=== PATIENT | female | born 1940 | race Caucasian/White ===

== ENCOUNTER 2017-08-05 06:56 | Inpatient (IN) | payer OTHER ==
[2017-08-05] MEDS ORDERED: IPRATROPIUM BROMIDE 0.5 MG/2.5 ML DEYVIAL IH ONE (07:57)
[2017-08-05] MEDS ORDERED: LEVALBUTEROL 1.25 MG/3 ML DEYVIAL IH ONE (07:57)
[2017-08-05] MEDS ORDERED: methylPREDNISolone SOD SUCC 125 MG/2 ML VIAL IVP ONE (07:57)
--- NOTE | 2017-08-05 08:02 | EDPHY ---
H & P Time Seen by Provider: 08/05/17 07:55 HPI/ROS: CHIEF COMPLAINT: Cough HISTORY OF PRESENT ILLNESS: The patient is a 76-year-old female with a history of bronchial malacia in recurrent respiratory in infections who presents to the emergency department with increasing cough and shortness of breath. Patient states her symptoms started a week ago Tuesday. She is now producing white and yellow sputum. Her cough is moderate to severe. She has mild chest discomfort with coughing. She does not know she has a fever. No chills. No leg pain or swelling. The patient states that over the past year she has had have a bronchoscope 5 times to pull out fluid. She states this is secondary to malfunctioning epiglottis. She also states she is allergic to albuterol and gets carpal spasm with it. REVIEW OF SYSTEMS: My complete review of systems is negative except as mentioned in the HPI. Past Medical/Surgical History: Includes bronchomalacia, chronic bronchitis Past surgical history: Splenectomy, tonsillectomy Social history: The patient does not smoke Smoking Status: Former smoker Physical Exam: 37.2, 183/104, 101, 20, 90% on room air GENERAL: Mild acute distress, alert. Recurrent coughing HEENT: Eyes normal to inspection, normal pharynx, no signs of dehydration. NECK: No thyromegaly, no lymphadenopathy, supple. RESPIRATORY: Coarse breath sounds bilaterally. No wheezing. Mild moderate rales. CVS: Regular rate and rhythm, no rubs, murmurs, or gallops. ABDOMEN: Soft, nontender, nondistended, no organomegaly. BACK: Normal to inspection, no CVA tenderness. SKIN: Normal color, no rash, warm, dry. No pallor. EXTREMITIES: No pedal edema, no calf tenderness, no Homans sign or cords, no joint swelling. NEURO/PSYCH: Alert and oriented x3, normal mood and affect, normal motor sensory exam. Constitutional: Initial Vital Signs Temperature (C) 37.2 C 08/05/17 07:04 Heart Rate 101 H 08/05/17 07:04 Respiratory Rate 20 08/05/17 07:04 Blood Pressure 183/104 H 08/05/17 07:04 O2 Sat (%) 90 L 08/05/17 07:04 O2 Delivery Mode Nasal Cannula O2 (L/minute) 2 Allergies/Adverse Reactions: codeine [Codeine] Allergy (Mild, Verified 08/05/17 11:09) Rash Penicillins Allergy (Mild, Verified 01/16/15 14:05) Rash Sulfa (Sulfonamide Antibiotics) Allergy (Mild, Verified 01/16/15 14:05) Rash albuterol Allergy (Verified 08/05/17 11:09) Other-Enter Comments fluticasone propionate [From Flovent Diskus] Allergy (Verified 08/05/17 11:09) Other-Enter Comments salmeterol xinafoate [From Advair Diskus] Allergy (Verified 08/05/17 11:09) Other-Enter Comments Home Medications: Medication Instructions Recorded Herbals/Supplements -Info Only 1 ea PO DAILY 12/19/15 Cyanocobalamin [Vitamin B12 1,000 mcg IM Q30D 08/05/17 1000MCG/ML (*)] Medical Decision Making - Diagnostics Imaging Results: Imaging Impressions Chest X-Ray 08/05/17 07:57 Impression: Mild perihilar bronchitis, with no new focal infiltrate. ED Course/Re-evaluation: In the emergency department I discussed possible etiologies with the patient. I answered all her questions. Patient states that she has an allergy to albuterol. This causes her to have carpal spasm. I ordered Xopenex discussed this with the patient. It is the same class of medication but perhaps it does not cause this reaction. She was also given Atrovent and Solu-Medrol. A chest x-ray was ordered as well as laboratory studies. She was given Levaquin 750 mg IV after blood cultures were drawn. Patient mild white count. Lactate was 1.8. Chemistry panel is unremarkable. Flu was negative. Chest x-ray: Please refer the dictated report. No focal infiltrate. Noted bronchitis. I discussed the results with the patient. I answered all her questions. I contacted the hospitalist service. They will admit the patient for further evaluation. I feel the patient needs admission due to her significant cough, history of numerous required bronchoscopies, worsening symptoms and need for oxygen. Differential Diagnosis: My differential includes but is not limited to pneumonia, bronchitis, pulmonary embolus, mass, malignancy, bronchomalacia, bacteremia, sepsis - Data Points Laboratory Results: Laboratory Results 08/05/17 07:45 08/05/17 07:45 08/05/17 08/05/17 08/05/17 07:45 07:45 07:45 WBC 13.26 10^3/uL H 10^3/uL (3.80-9.50) RBC 4.22 10^6/uL 10^6/uL (4.18-5.33) Hgb 13.9 g/dL g/dL (12.6-16.3) Hct 38.9 % % (38.0-47.0) MCV 92.2 fL fL (81.5-99.8) MCH 32.9 pg pg (27.9-34.1) MCHC 35.7 g/dL g/dL (32.4-36.7) RDW 14.4 % % (11.5-15.2) Plt Count 302 10^3/uL 10^3/uL (150-400) MPV 9.9 fL fL (8.7-11.7) Neut % (Auto) 50.6 % % (39.3-74.2) Lymph % (Auto) 38.9 % % (15.0-45.0) [place] % (Auto) 9.7 % % (4.5-13.0) Eos % (Auto) 0.2 % L % (0.6-7.6) Baso % (Auto) 0.2 % L % (0.3-1.7) Nucleat RBC Rel Count 0.0 % % (0.0-0.2) Absolute Neuts (auto) 6.72 10^3/uL H 10^3/uL (1.70-6.50) Absolute Lymphs (auto) 5.16 10^3/uL H 10^3/uL (1.00-3.00) Absolute Monos (auto) 1.28 10^3/uL H 10^3/uL (0.30-0.80) Absolute Eos (auto) 0.02 10^3/uL L 10^3/uL (0.03-0.40) Absolute Basos (auto) 0.03 10^3/uL 10^3/uL (0.02-0.10) Absolute Nucleated RBC 0.00 10^3/uL 10^3/uL (0-0.01) Immature Gran % 0.4 % % (0.0-1.1) Immature Gran # 0.05 10^3/uL 10^3/uL (0.00-0.10) VBG Lactic Acid 1.8 mmol/L mmol/L (0.7-2.1) Sodium 134 mEq/L mEq/L (134-144) Potassium 3.6 mEq/L mEq/L (3.5-5.2) Chloride 98 mEq/L mEq/L (97-110) Carbon Dioxide 24 mEq/l mEq/l (22-31) Anion Gap 12 mEq/L mEq/L (8-16) BUN 18 mg/dL mg/dL (7-23) Creatinine 0.6 mg/dL mg/dL (0.6-1.0) Estimated GFR > 60 Glucose 272 mg/dL H mg/dL (70-100) Calcium 9.6 mg/dL mg/dL (8.5-10.4) Troponin I < 0.012 ng/mL ng/mL (0.000-0.034) NT-Pro-B Natriuret Pep 2840 pg/mL H pg/mL (0-450) Influenza A & B (PCR) 08/05/17 07:25 WBC RBC Hgb Hct MCV MCH MCHC RDW Plt Count MPV Neut % (Auto) Lymph % (Auto) [place] % (Auto) Eos % (Auto) Baso % (Auto) Nucleat RBC Rel Count Absolute Neuts (auto) Absolute Lymphs (auto) Absolute Monos (auto) Absolute Eos (auto) Absolute Basos (auto) Absolute Nucleated RBC Immature Gran % Immature Gran # VBG Lactic Acid Sodium Potassium Chloride Carbon Dioxide Anion Gap BUN Creatinine Estimated GFR Glucose Calcium Troponin I NT-Pro-B Natriuret Pep Influenza A & B (PCR) NEGATIVE FOR FLU (NEGATIVE) Microbiology Results: MICROBIOLOGY 08/05/17 07:47 Nasal, Sinus - Swab Respiratory Panel (PCR) - Final Human Rhinovirus/Enterovirus Medications Given: Discontinued Medications Levofloxacin/Dextrose (Levaquin 750 Mg (Premix)) 150 mls @ 100 mls/hr IV EDNOW ONE PRN Reason: Protocol Stop: 08/05/17 09:31 Last Admin: 08/05/17 08:39 Dose: 150 mls Ipratropium [place] (Atrovent Neb) 0.5 mg IH EDNOW ONE Stop: 08/05/17 07:58 Last Admin: 08/05/17 08:18 Dose: 0.5 mg Levalbuterol (Xopenex 1.25mg Neb) 1.25 mg IH EDNOW ONE Stop: 08/05/17 07:58 Last Admin: 08/05/17 08:37 Dose: 1.25 mg Methylprednisolone Sodium Succinate (Solu-Medrol) 125 mg IVP EDNOW ONE Stop: 08/05/17 07:58 Last Admin: 08/05/17 08:20 Dose: 125 mg Departure - Departure Disposition: [facility] In[facility] Acute Clinical Impression: Hypoxia, Bronchitis, Thrush, oral Condition: Good
[2017-08-05 08:06] LABS: % IMMATURE GRANULYOCYTES 0.4 % (0.0-1.1); ABSOLUTE IMMATURE GRANULOCYTES 0.05 10^3/uL (0.00-0.10); ADD DIFF? NO; ADD MORPH? NO; ADD SCAN? NO; ATYPICAL LYMPHOCYTE FLAG 20 (0-99); FRAGMENT RBC FLAG 0 (0-99); HEMATOCRIT 38.9 % (38.0-47.0); HEMOGLOBIN 13.9 g/dL (12.6-16.3); LEFT SHIFT FLG 0 (0-99); LIPEMIA HEMOLYSIS FLAG 90 (0-99); MEAN CELL HEMOGLOBIN 32.9 pg (27.9-34.1); MEAN CELL HEMOGLOBIN CONCENTR. 35.7 g/dL (32.4-36.7); MEAN CELL VOLUME 92.2 fL (81.5-99.8); MEAN PLATELET VOLUME 9.9 fL (8.7-11.7); PLATELET CLUMPS FLAG 0 (0-99); PLATELET COUNT 302 10^3/uL (150-400); RED BLOOD CELL COUNT 4.22 10^6/uL (4.18-5.33); RED CELL DISTRIBUTION WIDTH 14.4 % (11.5-15.2)
[2017-08-05 08:15] LABS: ANION GAP 12 mEq/L (8-16); CALCIUM 9.6 mg/dL (8.5-10.4); CARBON DIOXIDE 24 mEq/l (22-31); CHLORIDE 98 mEq/L (97-110); CREATININE 0.6 mg/dL (0.6-1.0); GLOMERULAR FILTRATION RATE > 60; GLUCOSE 272 mg/dL (70-100); POTASSIUM 3.6 mEq/L (3.5-5.2); SODIUM 134 mEq/L (134-144)
[2017-08-05 08:27] LABS: TROPONIN I < 0.012 ng/mL (0.000-0.034)
[2017-08-05] MEDS: NYSTATIN SUSP 500000 UNIT/5 ML UDCUP PO SCH ×3 (12:41→20:12)
[2017-08-05] MEDS ORDERED: ONDANSETRON DISINTEGRATING 4 MG TAB PO PRN (15:02)
[2017-08-05] MEDS ORDERED: ACETAMINOPHEN 325 MG TAB PO PRN (15:02)
[2017-08-05] MEDS ORDERED: ONDANSETRON 4 MG/2 ML VIAL IVP PRN (15:02)
[2017-08-05] MEDS ORDERED: GUAIFENESIN/DM 10 ML UDCUP PO PRN (15:11)
--- NOTE | 2017-08-05 15:36 | GHP ---
[f rep st] HISTORY AND PHYSICAL DATE OF ADMISSION: 08/05/2017 HISTORY OF PRESENT ILLNESS: The patient is a pleasant 76-year-old female with a history of bronchoma lacia who presents with about 10 days of increasing cough and sputum and shortness of breath. She wa s seen at Urgent Care last week where she was given steroids and a Z-Flo with no improvement. She pr esents to the ER today with ongoing cough and shortness of breath. She is not on oxygen at home. Sh bharat had an oxygen requirement. She arrived to the emergency department 90% on room air. She has not h ad fever, chills, night sweats, but she has had ongoing sputum. It is not clear that she got a flu s hot this year. She does have a history of bronchomalacia requiring intermittent bronchoscopy. She does not have bro nchiectasis. She has no history of heart failure. She does give a history of having had pneumonia, possibly at [facility], and became volume ove rloaded. REVIEW OF SYSTEMS: A complete 10-point review of systems was conducted and negative except as noted in the history of present illness. PAST MEDICAL HISTORY: 1. Bronchomalacia requiring periodic bronchoscopies. 2. Chronic bronchitis, possible COPD. SOCIAL HISTORY: Smoked 40 pack years. Quit remotely. Minimal alcohol. FAMILY HISTORY: Daughter is present at the bedside and healthy. ALLERGIES: Albuterol, sulfa, penicillins, codeine, fluticasone, salmeterol. HOME MEDICATIONS: B12, herbals. PHYSICAL EXAMINATION: VITAL SIGNS: Temperature 37.2, blood pressure 183/104 now 169/92, pulse 101 n ow 65, breathing 20 times a minute, 90% on room air, 93 on 2 L. GENERAL: Uncomfortable, coughing fr equently. HEENT: Sclerae anicteric. Oropharynx clear. Mucous membranes moist. NECK: Supple with out lymphadenopathy. Difficult to assess JVD given frequent coughing. LUNGS: Rhonchorous bilateral ly with good air movement. No wheeze. HEART: S1, S2. ABDOMEN: Soft, nontender, nondistended. LO WER EXTREMITIES: Without edema. Calves nontender. SKIN: Without rash. NEUROLOGIC: Exam is nonfo florencio. White count 13.3, hematocrit 39, platelets 302,000. Venous lactate 1.8, sodium 134, potassium 3.6, c hloride 98, bicarb 24, BUN 18, creatinine 0.6, glucose 272, troponin less than 0.012. BNP is 2040. N otably a year and half ago it was 342. She is influenza negative. She had a respiratory virus panel which shows rhinovirus, enterovirus, Chest x-ray, interpreted by me, shows bronchitis without focal infiltrate. I have discussed the case Dr. Stanley Vasquez. ASSESSMENT AND PLAN: A 76-year-old female with bronchomalacia, presents with bronchitis, cough. 1. Bronchomalacia with bronchitis and cough. I will continue antibiotics. I have written for iprat ropium and Mucomyst nebs. I have talked to Dr. Vasquez about possible bronchoscopy; that will happen e ither today or tomorrow. She is currently n.p.o. 2. Elevated BNP. Will check an echocardiogram. I think volume overload is not her primary complain t. 3. Frequent cough. Will wait for bronchoscopy. She is allergic to codeine. We can write her for s ome Robitussin without codeine. 4. Prophylaxis. Pharmacologic prophylaxis is indicated. 5. Hypertension. This is situational. Will not treat for now. 6. Disposition. Inpatient status given her hypoxemia. /[id number]/MODL
[2017-08-05] MEDS ORDERED: LIDOCAINE 1% 300 MG/30 ML SDV ONE (15:40)
[2017-08-05] MEDS ORDERED: ALBUTEROL 3 ML DEYVIAL ONE (15:40)
[2017-08-05] MEDS ORDERED: SODIUM CL NASAL 45 ML BTL EACHNARE PRN (15:42)
--- NOTE | 2017-08-05 15:44 | PDHPUP ---
History & Physical Update H&P update statement: This history and physical update is based on an assessment of the patient which was completed after admission or registration (within 24 hours), but prior to the surgery/procedure. H&P update: H&P reviewed & patient examined, no change in patient's condition since H&P completed
--- NOTE | 2017-08-05 15:44 | PDPROPOC ---
Sedation Plan of Care Sedation Plan of Care: vital signs stable, mental status noted, patient educated of risks, benefits, alternatives, patient can tolerate sedation ASA Classification: ASA 2 Planned drugs: fentanyl, midazolam Mallampati Score: Class 2 Mallampati Reference Image:
[2017-08-05] MEDS ORDERED: fentaNYL 100 MCG/2 ML INJ ONE (16:25)
[2017-08-05] MEDS ORDERED: MIDAZOLAM 2 MG/2 ML VIAL ONE (16:25)
[2017-08-05] MEDS ORDERED: NS 500 ML IV ONE (16:38)
[2017-08-05] MEDS: ACETYLCYSTEINE 10% 30 ML VIAL IH SCH ×3 (16:47→21:15)
[2017-08-05] MEDS: BUDESONIDE/FORMOTEROL 160/4.5 60 PUFFS/MDI IH SCH ×2 (16:47→21:15)
[2017-08-05] MEDS ORDERED: METOPROLOL TARTRATE 5 MG/5 ML INJ ONE (17:08)
[2017-08-05] MEDS: hydrALAZINE 20 MG/ML VIAL IVP PRN (18:14)
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
[2017-08-05] MEDS: IPRATROPIUM BROMIDE 0.5 MG/2.5 ML DEYVIAL IH PRN (21:15)
--- NOTE | 2017-08-05 22:43 | GPN ---
[f rep st] PROCEDURE NOTE DATE OF PROCEDURE: 08/05/2017 PROCEDURE: Bronchoscopy. INDICATION: Chronic cough with COPD, mucus production, and tracheomalacia. CONSENT: Informed consent was obtained from the patient prior to the administration of anesthesia. The risks and benefits of the procedure and conscious sedation were described in detail. The patient agreed to proceed. ANESTHESIA: Conscious sedation was achieved using a total of 3 mg IV Versed, 75 mcg of IV fentanyl. The patient tolerated these well. DESCRIPTION OF PROCEDURE: After an appropriate time-out, topical lidocaine was applied liberally to the oropharynx and posterior pharynx. The bronchoscope was easily passed through normal-appearing vo florencio cords, though she did have a very brisk cough response. There were thin secretions within the tr achea and down into the tracheobronchial tree on both sides. There were scant, if any, mucus plugs f ound. We did get a reasonable specimen of cloudy, but clear, mucus without hemoptysis. During the p rocedure, the patient's blood pressure daniel to 220/120. This was checked on multiple occasions. The scope was subsequently withdrawn. While the endoscopy staff was obtaining metoprolol, we rechecked the blood pressure with the scope out, and her pressure dropped to 170/90. She was somnolent at this time, but denied any symptoms. We did listen to her lungs at this time. She had some coarse breath sounds on the left side, but no change in oxygenation. Pupils were equally round and reactive to li ght and her neuro exam was nonfocal. /[id number]/MODL
[2017-08-06 05:03] LABS: % IMMATURE GRANULYOCYTES 0.3 % (0.0-1.1); ABSOLUTE IMMATURE GRANULOCYTES 0.03 10^3/uL (0.00-0.10); ADD DIFF? NO; ADD MORPH? NO; ADD SCAN? NO; ATYPICAL LYMPHOCYTE FLAG 20 (0-99); FRAGMENT RBC FLAG 0 (0-99); HEMATOCRIT 36.4 % (38.0-47.0); HEMOGLOBIN 12.9 g/dL (12.6-16.3); LEFT SHIFT FLG 10 (0-99); LIPEMIA HEMOLYSIS FLAG 90 (0-99); MEAN CELL HEMOGLOBIN 33.4 pg (27.9-34.1); MEAN CELL HEMOGLOBIN CONCENTR. 35.4 g/dL (32.4-36.7); MEAN CELL VOLUME 94.3 fL (81.5-99.8); MEAN PLATELET VOLUME 9.8 fL (8.7-11.7); PLATELET CLUMPS FLAG 0 (0-99); PLATELET COUNT 275 10^3/uL (150-400); RED BLOOD CELL COUNT 3.86 10^6/uL (4.18-5.33); RED CELL DISTRIBUTION WIDTH 14.6 % (11.5-15.2)
[2017-08-06 05:23] LABS: ALANINE AMINOTRANSFERASE 37 IU/L (9-52); ALBUMIN 3.3 g/dL (3.5-5.0); ALKALINE PHOSPHATASE 78 IU/L (38-126); ANION GAP 9 mEq/L (8-16); ASPARTATE AMINOTRANSFERASE 15 IU/L (14-46); BILIRUBIN,TOTAL 0.6 mg/dL (0.1-1.4); CALCIUM 9.4 mg/dL (8.5-10.4); CARBON DIOXIDE 24 mEq/l (22-31); CHLORIDE 101 mEq/L (97-110); CREATININE 0.8 mg/dL (0.6-1.0); GLOMERULAR FILTRATION RATE > 60; GLUCOSE 308 mg/dL (70-100); POTASSIUM 4.5 mEq/L (3.5-5.2); SODIUM 134 mEq/L (134-144); TOTAL PROTEIN 6.2 g/dL (6.3-8.2)
[2017-08-06] MEDS: NYSTATIN SUSP 500000 UNIT/5 ML UDCUP PO SCH ×3 (05:36→16:09)
[2017-08-06] MEDS: ACETYLCYSTEINE 10% 30 ML VIAL IH SCH ×3 (06:00→16:46)
[2017-08-06] MEDS: IPRATROPIUM BROMIDE 0.5 MG/2.5 ML DEYVIAL IH PRN ×3 (06:00→16:46)
[2017-08-06] MEDS: CEPACOL LOZENGE PO PRN ×2 (06:34→16:09)
[2017-08-06] MEDS ORDERED: ENOXAPARIN 40 MG/0.4 ML SYR SC SCH (09:00)
[2017-08-06] MEDS: BUDESONIDE/FORMOTEROL 160/4.5 60 PUFFS/MDI IH SCH (10:34)
--- NOTE | 2017-08-06 11:17 | PDINTPN ---
Professor Of Physical Education Progress Note Assessment/Plan: Assessment/plan: 76 F with COPD and chronic cough off meds for several months developed ST, F/ chills, and cough. Requested bronch as was done in the past and found to have significant mucous plugs. CXR was unremarkable, but viral cultures show Rhinovirus. * COPD/RAD with FEV1= 80-85% both at [facility] and [facility]. Much better today, likely as a result of symbicort and not likely from bronch which showed very little and only thin secretions. Keep symbicort after dc home and she can followup with me in 4-6 weeks for complete PFTs. * Rhinovirus sinusitis- stable. Continue nasal rinses and flonase * HTN- per hospitalist team- echo done with pending results. Subjective: Feels much better today after starting symbicort Objective: Vital Signs Temp Pulse Resp BP Pulse Ox 36.7 C 70 14 158/87 H 95 08/06/17 08:00 08/06/17 10:39 08/06/17 10:39 08/06/17 08:00 08/06/17 10:39 Microbiology 08/05/17 17:10 Gram Stain - Final Lung Left Lower Lobe - Bronchial Washings Laboratory Results 08/06/17 04:45 08/06/17 04:45 08/05/17 08/06/17 08/07/17 05:59 05:59 05:59 Intake Total 450 Output Total 1450 200 Balance -1000 -200 Physical Exam - Physical Exam General Appearance: WD/WN, alert, no apparent distress EENT: PERRL/EOMI Neck: supple Respiratory: lungs clear, normal breath sounds, No respiratory distress, No accessory muscle use, No rales, No rhonchi, No wheezing Cardiac/Chest: regular rate, rhythm, No edema Abdomen: non-tender, soft, No distended Skin: normal color, warm/dry Lymphatic: no adenopathy Extremities: No pedal edema Neuro/Psych: alert, normal mood/affect, oriented x 3 ICD10 Worksheet Patient Problems: Problems Problem Status Onset Bronchitis Acute Hypoxia Acute Thrush, oral Acute Acute exacerbation of chronic bronchitis Acute Respiratory distress Acute
--- NOTE | 2017-08-06 11:21 | ECHO ---
[email or web address] [address] [address] Main: [phone] Fax: Transthoracic Echocardiogram Name: ALEXANDR GLOVER MR#: [id number] Study Date: 08/06/2017 Study Time: 09:35 AM Date of : 1940 Age: 76 year(s) Height: 160 cm (63 in.) Weight: 58.97 kg (130 lb.) BSA: 1.61 m2 Gender: Female Examination: Echo Indication: Elevated BNP 158 Image Quality: Contrast: Requested by: Norberto Lua BP: 158 mmHg/87 mmHg Heart Rate: Rhythm: Indication: Elevated BNP Procedure Staff Retail Coverage Merchandiser: Cookie Arellano Reading Physician: Everardo Mohr Requesting Provider: Conclusions: 1)Normal LV size and systolic function with a LVEF of 63% and normal wall motions. 2)Mild concentric LVH with mild diastolic dsyfunction. 3)Mild-moderate left atrial enlargement noted. 4)Aortic valve sclerosis present with no or AI noted. 5)Trivial MR without MV prolapse. 6)Mild TR noted. Unable to accurately assess PA pressures. Measurements: Chambers Valvular Assessment AV/MV Valvular Assessment TV/PV Normal Normal Normal Name Value Range Name Value Range Name Value Range Ao Lynda (MM): 2.7 cm (2.2 cm-3.7 AV Vmax: 1.43 m/s (1 m/s-1.7 TR Vmax: 2.13 mm/s ( - ) cm) m/s) TR PGmax: 18 mmHg ( - ) IVSd (2D): 0.9 cm (0.6 cm-1.1 AV maxP mmHg ( - ) syst. PAP: 23 mmHg ( - ) cm) MV E Vmax: 0.76 m/s ( - ) LVDd (2D): 4.0 cm (3.9 cm-5.3 MV A Vmax: 0.99 m/s ( - ) cm) MV E/A: 0.77 ( - ) LVDs (2D): 2.4 cm (2.1 cm-4 cm) LVPWd (2D): 0.8 cm ( - ) LVEF (MOD4): 63 % (>=55 %) Continued Measurements: Chambers Valvular Assessment AV/MV Valvular Assessment TV/PV Name Value Name Value Name Value LADs: 3.6 cm MV E/E' Septal: 16.30 CVP (est.): 5 mmHg LADs Lon.7 cm MV E/E' Lateral: 15.70 LA Area: 20.7 cm2 Patient: ALEXANDR GLOVER Study Date: 08/06/2017 Page 1 of 2 09:35 AM LA Volume: 58 ml LA Volume Index: 36.0 ml/m2 Findings: Left Ventricle: Normal size left ventricle. Mild concentric LV hypertrophy. Normal global systolic LV function. EF is 63 %. Mild diastolic dysfunction noted. Right Ventricle: Normal size right ventricle. Left Atrium: The left atrium is mildly to moderately dilated. Right Atrium: The right atrium is normal in size. Mitral Valve: Trivial mitral valve regurgitation. Moderate MAC noted. Aortic Valve: The aortic valve is tri-leaflet. There is mild calcification of the NCC of the aortic valve. Tricuspid Valve: The tricuspid valve appears normal. Trivial tricuspid valve regurgitation. Pulmonic Valve: The pulmonic valve is normal in appearance. Mild pulmonic valve regurgitation is noted. Pericardium: No pericardial effusion. (No Signature Object) Patient: ALEXANDR GLOVER Study Date: 08/06/2017 Page 2 of 2 09:35 AM [id number]
--- NOTE | 2017-08-06 11:44 | ASMTCMCOM ---
CM Note CM Note Notes: Pt. is a 76-year-old woman admitted w/ bronchitis. Hx. of chronic lung problems. Has been a patient at [facility]. Hx. multiple bronchoscopies. Bronched at [facility] 08/05. Hx. PNA, former smoker. Pt. reportedly lives alone, but daughter is very nearby and son involved as well. Anticipate independent d/c when ready. CM available should d/c POC change. Date Signed: 08/06/2017 11:43 AM Electronically Signed By:Ely Saunders LCSW
[2017-08-06] MEDS: hydrALAZINE 20 MG/ML VIAL IVP PRN (11:57)
--- NOTE | 2017-08-06 13:04 | HOSPPROG ---
Hospitalist Progress Note Assessment/Plan: 76 yo f w broncho malacia here w cough, htn cough: much improved post bronch thin secretions- will not dc on abx htn: w YUAN check head CT states normally has normal BP echo unremarkable elevated bnp- likely 2/2 htn dispo: home if neg non con CT Subjective: case d/w dr elliott. tele no events, interp by me Objective: Vital Signs Temp Pulse Resp BP Pulse Ox 37.2 C 65 16 176/88 H 96 08/06/17 11:41 08/06/17 11:41 08/06/17 11:41 08/06/17 11:57 08/06/17 11:41 Microbiology 08/05/17 17:10 Gram Stain - Final Lung Left Lower Lobe - Bronchial Washings Laboratory Results 08/06/17 04:45 08/06/17 04:45 08/05/17 08/06/17 08/07/17 05:59 05:59 05:59 Intake Total 450 Output Total 1450 200 Balance -1000 -200 - Physical Exam Constitutional: no apparent distress, appears nourished Eyes: PERRL, anicteric sclera Ears, Nose, Mouth, Throat: moist mucous membranes, hearing normal Cardiovascular: regular rate and rhythym, no murmur, rub, or gallop Respiratory: no respiratory distress, other (much improved) Gastrointestinal: normoactive bowel sounds, soft, non-tender abdomen Genitourinary: no bladder fullness Skin: warm, normal color Musculoskeletal: full muscle strength, no muscle tenderness ICD10 Worksheet Patient Problems: Problems Problem Status Onset Bronchitis Acute Hypoxia Acute Thrush, oral Acute Acute exacerbation of chronic bronchitis Acute Respiratory distress Acute
[2017-08-06 15:50] VITALS: BP 138/71; TEMP 97.9
--- NOTE | 2017-08-06 16:35 | ASMTCMCOM ---
CM Note CM Note Notes: Pt. to d/c independently this evening. Date Signed: 08/06/2017 04:34 PM Electronically Signed By:Ely Saunders LCSW
[2017-08-06 17:06] VITALS: PULSE 70; RESP 14; O2SAT 96
--- NOTE | 2017-08-06 18:16 | GDS ---
[f rep st] DISCHARGE SUMMARY DISCHARGE DIAGNOSES: 1. Bronchomalacia with viral upper respiratory infection. 2. Hypertension. 3. Reactive airway disease. HOSPITAL COURSE: Please see admission history and physical by Dr. Norberto Lua. The patient prese nted with dyspnea and unrelenting cough. She was unresponsive to steroids and Z-Flo. She underwent bronchoscopy, revealed thin secretions. The procedure was aborted largely to marked hypertension of 220/120 that resolved down to 170. She does not carry a diagnosis of hypertension. She had elevated BNP. Echocardiogram was relatively normal, showing diastolic dysfunction. She did not have clinica l heart failure. She complained of a headache, so a noncontrast head CT was pursued, and found to stone ve no evidence of subdural hematoma or other acute events. The patient is discharged home. She is a greeable to taking Symbicort. Her air sealing technician is Dr. Darren Sandoval, who has just retired, so she wi ll follow up with Dr. Stanley Vasquez. /[id number]/MODL
--- NOTE | 2017-08-07 14:59 | ASDISCHSUM ---
Discharge Information Plan Status:Home with No Needs Medically Cleared to Leave: Discharge Date:08/06/2017 05:51 PM CM D/C Disposition:Home, Routine, Self-Care ADT D/C Disposition:Home, Routine, Self-Care Projected Discharge Date:08/06/2017 05:51 PM Transportation at D/C: Discharge Delay Reason: Follow-Up Date:08/06/2017 05:51 PM Discharge Slot: Final Diagnosis: Placement Information Patient Contact Information Contact Name:RADHA Relationship:Daughter Address:[address] City:[place] Alternate Phone: [facility]/Zip Code:[place] [address] Email: Financial Information Financial Class: Primary Plan Desc:MEDICARE OUTPATIENT Primary Plan Number:[id number] Secondary Plan Desc:[facility] Secondary Plan Number:[id number] Assessment Information [facility] CM Progress Note CM Note CM Note Notes: Pt. is a 76-year-old woman admitted w/ bronchitis. Hx. of chronic lung problems. Has been a patient at [facility]. Hx. multiple bronchoscopies. Bronched at [facility] 08/05. Hx. PNA, former smoker. Pt. reportedly lives alone, but daughter is very nearby and son involved as well. Anticipate independent d/c when ready. CM available should d/c POC change. Date Signed: 08/06/2017 11:43 AM Electronically Signed By:Ely Saunders LCSW [facility] CM Progress Note CM Note CM Note Notes: Pt. to d/c independently this evening. Date Signed: 08/06/2017 04:34 PM Electronically Signed By:Ely Saunders LCSW Intervention Information Intervention Type:*Incorrect Registration Date of Service:08/05/2017 05:13 PM Patient Type:Inpatient Staff Member:JESSA Carmona, Bronwyn Hours: Discipline: Severity: Comment:
== END 2017-08-06 17:51 | disposition home or self-care (01) | DRG 192 ==
LOC: OBSVTOIN 10:18 → F3E 11:34
PROVIDERS: ADMIT Internal Medicine; ATTEND Internal Medicine
DX: J44.0 Chronic obstructive pulmonary disease with (acute) lower respiratory infection (principal); J98.09 Other diseases of bronchus, not elsewhere classified; I10 Essential (primary) hypertension; K21.9 Gastro-esophageal reflux disease without esophagitis; J32.9 Chronic sinusitis, unspecified; Z87.891 Personal history of nicotine dependence
CPT/HCPCS: 96365; J0171; J0360; J1650; J1956; J2250; J3010

== ENCOUNTER 2017-09-23 22:02 | Inpatient (IN) | payer OTHER ==
--- NOTE | 2017-09-23 22:22 | EDPHY ---
H & P Stated Complaint: seen by pcp today with blood work elevated glucose low na+ HPI/ROS: HPI CHIEF COMPLAINT: Unsteadiness, dizziness, lightheadedness, high blood sugar low sodium. HISTORY OF PRESENT ILLNESS: Patient very pleasant 77-year-old female, she presents emergency room after she was seen at her primary care doctor's office today and had blood work and found to have a very high blood sugar and a low sodium. Concerning for diabetes. She was referred to the emergency room. It is reported that her blood sugar was over 700. Unclear what her sodium was. She does admit to dry mouth, increased thirst and urinary frequency. Her main complaint is feeling lightheadedness. Dizziness. Past Medical History: Bronchomalacia, COPD, recent upper respiratory tract infection, reactive airway disease, hypertension Past Surgical History: Multiple surgeries including appendectomy Social History: Denies daily use of drugs alcohol tobacco products. Family History: Noncontributory ROS REVIEW OF SYSTEMS: A comprehensive 10 point review of systems is otherwise negative aside from elements mentioned in the history of present illness. Exam Constitutional appears nontoxic, triage nursing summary reviewed, vital signs reviewed, awake/alert. Eyes normal conjunctivae and sclera, EOMI, PERRLA. HENT dry mucous membranes, dry skin, normal inspection, atraumatic, moist mucus membranes, no epistaxis, neck supple/ no meningismus, no raccoon eyes. Respiratory clear to auscultation bilaterally, normal breath sounds, no respiratory distress, no wheezing. Cardiovascular rate normal, regular rhythm, no murmur, no edema, distal pulses normal. Gastrointestinal soft, non-tender, no rebound, no guarding, normal bowel sounds, no distension, no pulsatile mass. Genitourinary no CVA tenderness. Musculoskeletal no midline vertebral tenderness, full range of motion, no calf swelling, no tenderness of extremities, no meningismus, good pulses, neurovascularly intact. Skin dry skin, pink, warm, & dry, no rash, skin atraumatic. Neurologic awake, alert and oriented x 3, AAOx3, moves all 4 extremities equally, motor intact, sensory intact, CN II-XII intact, normal cerebellar, normal vision, normal speech. Psychiatric normal mood/affect. Heme/Lymph/Immune no lymphadenopathy. Differential Diagnosis: Includes but is not limited to in a particular order: DKA, severe hyperglycemia, honk, infection, hyponatremia, electrolyte disturbance Medical Decision Making: Plan for this patient IV establishment with blood draw check sodium, check blood glucose, hold off on IV fluids at this time until I understand her electrolyte imbalance. Rule out DKA. Re-evaluation: 1216: The patient had a repeat fingerstick glucose it is down to 350 after 10 units subcu insulin and 1 L normal saline. She has not required insulin drip. She does not have an anion gap. Her bicarb is normal. I do not feel that she needs an insulin drip. Will continue to hydrate her overnight. As she does not need insulin drip she does not need to go to the ICU she is not in DKA. Final diagnosis hyperglycemia, hyponatremia, dehydration. Spoke with the hospitalist service Dr. Curtis who agrees to admit. Source: Patient - Personal History Current Tetanus/Diphtheria Vaccine: Yes Current Tetanus Diphtheria and Acellular Pertussis (TDAP): Yes - Medical/Surgical History Hx Asthma: No Hx Chronic Respiratory Disease: Yes Hx Diabetes: Yes Hx Cardiac Disease: No Hx Renal Disease: No Hx Cirrhosis: No Hx Alcoholism: No Hx HIV/AIDS: No Hx Splenectomy or Spleen Trauma: Yes Other PMH: PMH: Chronic bronchitis. PSH: spleenectomy, tonsillectomy. bronchial malasia, "too much mucous". last bronchoscopy dec 2015 - Social History Smoking Status: Former smoker Constitutional: Initial Vital Signs Temperature (C) 36.9 C 09/23/17 22:11 Heart Rate 59 L 09/23/17 22:11 Respiratory Rate 18 09/23/17 22:11 Blood Pressure 177/90 H 09/23/17 22:11 O2 Sat (%) 93 09/23/17 22:11 O2 Delivery Mode Room Air Allergies/Adverse Reactions: codeine [Codeine] Allergy (Mild, Verified 08/05/17 11:09) Rash Penicillins Allergy (Mild, Verified 01/16/15 14:05) Rash Sulfa (Sulfonamide Antibiotics) Allergy (Mild, Verified 01/16/15 14:05) Rash albuterol Allergy (Verified 08/05/17 11:09) Other-Enter Comments fluticasone propionate [From Flovent Diskus] Allergy (Verified 08/05/17 11:09) Other-Enter Comments hydrocodone Allergy (Verified 09/23/17 22:09) salmeterol xinafoate [From Advair Diskus] Allergy (Verified 08/05/17 11:09) Other-Enter Comments Home Medications: Medication Instructions Recorded Herbals/Supplements -Info Only 1 ea PO DAILY 12/19/15 Cyanocobalamin [Vitamin B12 1,000 mcg IM Q30D 08/05/17 1000MCG/ML (*)] Budesonide/Formoterol 160/4.5 2 puffs IH BID mdi 08/06/17 [Symbicort 160-4.5 Mcg Inh (*)] Fluconazole [Diflucan (*)] 150 mg PO DAILY 09/23/17 Lisinopril [Zestril 10 mg (*)] 10 mg PO DAILY 09/24/17 Magnesium Oxide [Magnesium Oxide 500 mg PO BID PRN 09/24/17 500 mg] metFORMIN HCL [Metformin HCl ER] 500 mg PO DAILY 09/24/17 Medical Decision Making - Data Points Laboratory Results: Laboratory Results 09/23/17 22:36 09/23/17 22:36 Medications Given: Acetaminophen (Tylenol) 650 mg PO Q4HRS PRN PRN Reason: Pain, Mild/Fever, Can Take PO Stop: 03/23/18 00:16 Last Admin: 09/24/17 20:12 Dose: 650 mg Enoxaparin Sodium (Lovenox) 40 mg SC DAILY [facility] Stop: 03/23/18 08:59 Last Admin: 09/24/17 08:04 Dose: Not Given Fluconazole (Diflucan) 150 mg PO DAILY [facility] Stop: 09/29/17 09:01 Last Admin: 09/24/17 09:46 Dose: 150 mg Insulin Human Lispro (Humalog Lispro) 0 unit SC TIDMEAL STEPHEN PRN Reason: Protocol Stop: 03/23/18 07:59 Last Admin: 09/24/17 17:32 Dose: 12 unit Lisinopril (Zestril) 10 mg PO DAILY [facility] Stop: 03/23/18 09:29 Last Admin: 09/24/17 09:42 Dose: 10 mg Magnesium Oxide (Magnesium Oxide) 400 mg PO BID PRN PRN Reason: CRAMPS Stop: 03/23/18 10:12 Last Admin: 09/24/17 12:49 Dose: 400 mg Metformin HCl (Glucophage Xr) 500 mg PO DAILY@1700 [facility] Stop: 03/23/18 16:59 Last Admin: 09/24/17 17:49 Dose: 500 mg Miscellaneous Medication (Budesonide/Formoterol 160/4.5 [Symbicort 160-4.5 Mcg Inh (*)]) 2 puffs IH BID STEPHEN Stop: 03/23/18 09:29 Last Admin: 09/24/17 20:14 Dose: 2 puffs Nystatin (Mycostatin Oral Liquid) 500,000 unit PO QID STEPHEN PRN Reason: Protocol Stop: 10/24/17 11:59 Last Admin: 09/24/17 20:14 Dose: 500,000 unit Discontinued Medications Sodium Chloride (Ns) 1,000 mls @ 0 mls/hr IV ONCE ONE PRN Reason: Wide Open Stop: 09/23/17 23:11 Last Admin: 09/23/17 23:22 Dose: 1,000 mls Sodium Chloride (Ns) 1,000 mls @ 125 mls/hr IV CONT STEPHEN Stop: 03/23/18 00:29 Last Admin: 09/24/17 09:33 Dose: 1,000 mls Influenza Virus Vaccine Quadrival (Fluarix Quad [id number]) 0.5 ml IM .ONCE ONE Stop: 09/24/17 15:31 Last Admin: 09/24/17 15:27 Dose: 0.5 ml Insulin Glargine (Lantus Syringe) 10 units SC HS [facility] Stop: 03/23/18 00:29 Last Admin: 09/24/17 01:45 Dose: Not Given Insulin Human Regular (Humulin R) 10 unit SC EDNOW ONE Stop: 09/23/17 23:12 Last Admin: 09/23/17 23:23 Dose: 10 units Insulin Human Regular (Humulin R) 10 unit IVP ONCE ONE Stop: 09/24/17 00:39 Last Admin: 09/24/17 00:43 Dose: 10 units Departure - Departure Disposition: [facility] Acute Clinical Impression: Hyperglycemia, Dehydration Condition: Fair
[2017-09-23 22:36] LABS: COLOR YELLOW; LEUKOCYTE ESTERASE,URINE NEGATIVE (NEGATIVE); NITRITE,URINE NEGATIVE (NEGATIVE)
[2017-09-23 22:43] LABS: % IMMATURE GRANULYOCYTES 0.1 % (0.0-1.1); ABSOLUTE IMMATURE GRANULOCYTES 0.01 10^3/uL (0.00-0.10); ADD DIFF? NO; ADD MORPH? NO; ADD SCAN? NO; ATYPICAL LYMPHOCYTE FLAG 30 (0-99); FRAGMENT RBC FLAG 0 (0-99); HEMATOCRIT 40.1 % (38.0-47.0); HEMOGLOBIN 14.7 g/dL (12.6-16.3); LEFT SHIFT FLG 0 (0-99); LIPEMIA HEMOLYSIS FLAG 90 (0-99); MEAN CELL HEMOGLOBIN 33.6 pg (27.9-34.1); MEAN CELL HEMOGLOBIN CONCENTR. 36.7 g/dL (32.4-36.7); MEAN CELL VOLUME 91.8 fL (81.5-99.8); MEAN PLATELET VOLUME 10.2 fL (8.7-11.7); PLATELET CLUMPS FLAG 10 (0-99); PLATELET COUNT 215 10^3/uL (150-400); RED BLOOD CELL COUNT 4.37 10^6/uL (4.18-5.33)
[2017-09-23 22:52] LABS: APTT 23.1 SEC (23.0-38.0); INR 0.93 (0.83-1.16); PROTIME(PATIENT) 12.4 SEC (12.0-15.0)
[2017-09-23 22:54] LABS: ALANINE AMINOTRANSFERASE 32 IU/L (9-52); ALBUMIN 4.3 g/dL (3.5-5.0); ALKALINE PHOSPHATASE 220 IU/L (38-126); ANION GAP 12 mEq/L (8-16); ASPARTATE AMINOTRANSFERASE 29 IU/L (14-46); BILIRUBIN,TOTAL 0.3 mg/dL (0.1-1.4); BILIRUBIN-CONJUGATED 0.3 mg/dL (0.0-0.5); CALCIUM 9.7 mg/dL (8.5-10.4); CARBON DIOXIDE 24 mEq/l (22-31); CHLORIDE 91 mEq/L (97-110); CREATININE 0.7 mg/dL (0.6-1.0); GLOMERULAR FILTRATION RATE > 60; POTASSIUM 4.6 mEq/L (3.5-5.2); SODIUM 127 mEq/L (134-144); TOTAL PROTEIN 6.6 g/dL (6.3-8.2)
[2017-09-23 23:01] LABS: BASE EXCESS -3.1 mEq/L (-2.5-2.5); BICARBONATE 19 mEq/L (22-26); PCO2 26 mmHg (34-38); PO2 100 mmHg (65-75); TCO2 19 mEq/L (23-27)
[2017-09-23 23:02] LABS: GLUCOSE 516 mg/dL (70-100)
[2017-09-23 23:02] LABS: MEASURED OXYGEN SATURATION 98 % (92-95)
[2017-09-23] MEDS ORDERED: NS 1,000 ML IV ONE (23:10)
[2017-09-23] MEDS ORDERED: INSULIN REGULAR HUMAN 100 UNIT/ML SC ONE (23:11)
[2017-09-23 23:15] LABS: RBC,URINE NONE SEEN /hpf (0-3)
[2017-09-24] MEDS ORDERED: ONDANSETRON 4 MG/2 ML VIAL IVP PRN (00:17)
[2017-09-24] MEDS ORDERED: D50W 25 GM/50 ML SYR IVP PRN (00:19)
[2017-09-24] MEDS ORDERED: INSULIN GLARGINE 100 UNITS/ML SYRINGE SC SCH (00:30)
[2017-09-24] MEDS ORDERED: INSULIN REGULAR HUMAN 100 UNIT/ML IVP ONE (00:38)
[2017-09-24 00:41] LABS: ANION GAP 13 mEq/L (8-16); CALCIUM 8.7 mg/dL (8.5-10.4); CARBON DIOXIDE 22 mEq/l (22-31); CHLORIDE 99 mEq/L (97-110); CREATININE 0.6 mg/dL (0.6-1.0); GLOMERULAR FILTRATION RATE > 60; GLUCOSE 382 mg/dL (70-100); POTASSIUM 4.2 mEq/L (3.5-5.2); SODIUM 134 mEq/L (134-144)
[2017-09-24] MEDS ORDERED: INSULIN REGULAR HUMAN 100 UNIT/ML ONE ×2 (00:41)
[2017-09-24] MEDS: NS 1,000 ML IV SCH ×2 (01:29→09:33)
[2017-09-24 05:36] LABS: % IMMATURE GRANULYOCYTES 0.1 % (0.0-1.1); ABSOLUTE IMMATURE GRANULOCYTES 0.01 10^3/uL (0.00-0.10); ADD DIFF? NO; ADD MORPH? NO; ADD SCAN? NO; ATYPICAL LYMPHOCYTE FLAG 30 (0-99); FRAGMENT RBC FLAG 0 (0-99); HEMATOCRIT 35.8 % (38.0-47.0); HEMOGLOBIN 12.5 g/dL (12.6-16.3); LEFT SHIFT FLG 0 (0-99); LIPEMIA HEMOLYSIS FLAG 90 (0-99); MEAN CELL HEMOGLOBIN 32.1 pg (27.9-34.1); MEAN CELL HEMOGLOBIN CONCENTR. 34.9 g/dL (32.4-36.7); MEAN PLATELET VOLUME 10.4 fL (8.7-11.7); PLATELET CLUMPS FLAG 0 (0-99); PLATELET COUNT 206 10^3/uL (150-400); RED BLOOD CELL COUNT 3.89 10^6/uL (4.18-5.33); RED CELL DISTRIBUTION WIDTH 12.9 % (11.5-15.2)
[2017-09-24 06:01] LABS: ANION GAP 8 mEq/L (8-16); CARBON DIOXIDE 25 mEq/l (22-31); CHLORIDE 104 mEq/L (97-110); CREATININE 0.6 mg/dL (0.6-1.0); GLOMERULAR FILTRATION RATE > 60; GLUCOSE 108 mg/dL (70-100); MAGNESIUM 2.1 mg/dL (1.6-2.3); POTASSIUM 3.4 mEq/L (3.5-5.2); SODIUM 137 mEq/L (134-144)
[2017-09-24] MEDS: INSULIN LISPRO 100 UNIT/ML SC SCH ×3 (07:54→17:32)
[2017-09-24] MEDS: ENOXAPARIN 40 MG/0.4 ML SYR SC SCH (08:04)
[2017-09-24] MEDS ORDERED: NON-FORMULARY NEW DRUG (Magnesium Oxide [Magnesium Oxide 500 Mg] 500 MG) PO PRN (09:05)
[2017-09-24] MEDS: ACETAMINOPHEN 325 MG TAB PO PRN ×2 (09:42→20:12)
[2017-09-24] MEDS: LISINOPRIL 10 MG TAB PO SCH (09:42)
[2017-09-24] MEDS: [UNRECOGNIZED DRUG - OTHER] IH SCH ×2 (09:46→20:14)
[2017-09-24] MEDS: BUDESONIDE IH SCH ×2 (09:46→20:14)
[2017-09-24] MEDS: FORMOTEROL IH SCH ×2 (09:46→20:14)
[2017-09-24] MEDS: FLUCONAZOLE 150 MG TAB PO SCH (09:46)
[2017-09-24] MEDS ORDERED: FLU VACC QS 2017-18 (3YR+)/PF 0.5 ML SYR (FLUARIX QUAD) IM ONE ×2 (09:54→15:30)
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
--- NOTE | 2017-09-24 11:14 | ASMTCMCOM ---
CM Note CM Note Notes: Pt has recent dx of diabetes and was admitted for hyperglycemia. Pt lives alone and will benefit from HC RN at NH. Met with pt who agreed with HC RN. Referral faxed to [facility]. Date Signed: 09/24/2017 11:13 AM Electronically Signed By:Dalia Tam LCSW
[2017-09-24 12:37] LABS: GLUCOSE 332 mg/dL (70-100)
[2017-09-24] MEDS: NYSTATIN SUSP 500000 UNIT/5 ML UDCUP PO SCH ×3 (12:49→20:14)
[2017-09-24] MEDS: MAGNESIUM OXIDE 400 MG TAB PO PRN (12:49)
--- NOTE | 2017-09-24 15:07 | HOSPPROG ---
Hospitalist Progress Note Assessment/Plan: Patient is a 77-year-old female with a past medical history with hypertension and COPD. She was evaluated by her primary care provider and was prescribed metformin for new diagnosed diabetes. She was sent to the hospital for further evaluation. Today is my 1st encounter with the patient * diabetes type 2, newly diagnosed -glucoses remain still quite elevated -started on ADA diet -will ask the nursing staff to teacher on how to check her glucoses -she had recently been on steroids * benign hypertension -on lisinopril * thrush -on Diflucan * COPD -on Symbicort *Chronic headache -no complaints * hyponatremia -recheck in a.m. *Plan: patient says she feels off and has felt this way for weeks/?due to high blood sugars/ has no focal deficits. Will monitor overnight, ask nursing staff to teach her how to monitor glucoses, data solutions architect to see. Subjective: Cookie has no complaints but describes feeling off for a period of time Objective: Vital Signs Temp Pulse Resp BP Pulse Ox 36.8 C 60 12 128/65 H 95 09/24/17 11:46 09/24/17 11:46 09/24/17 11:46 09/24/17 11:46 09/24/17 11:46 Laboratory Results 09/24/17 05:18 09/24/17 12:10 09/23/17 09/24/17 09/25/17 05:59 05:59 05:59 Intake Total 1500 Output Total 800 Balance 1500 -800 PT 12.4 SEC (12.0-15.0) 09/23/17 22:36 INR 0.93 (0.83-1.16) 09/23/17 22:36 - Physical Exam Constitutional: not in pain, chronically ill appearing Eyes: PERRL Ears, Nose, Mouth, Throat: hearing normal Cardiovascular: regular rate and rhythym Respiratory: no respiratory distress Genitourinary: no bladder fullness Skin: warm Musculoskeletal: generalized weakness Neurologic: AAOx3 Psychiatric: interacting appropriately, not encephalopathic, thought process linear ICD10 Worksheet Patient Problems: Problems Problem Status Onset Dehydration Acute Hyperglycemia Acute Acute exacerbation of chronic bronchitis Acute Bronchitis Acute Hypoxia Acute Respiratory distress Acute Thrush, oral Acute
[2017-09-24] MEDS ORDERED: metFORMIN SR 500 MG TAB PO SCH (17:00)
[2017-09-25] MEDS: NYSTATIN SUSP 500000 UNIT/5 ML UDCUP PO SCH ×4 (05:03→21:07)
[2017-09-25] MEDS: ACETAMINOPHEN 325 MG TAB PO PRN ×2 (05:03→21:08)
[2017-09-25] MEDS: INSULIN LISPRO 100 UNIT/ML SC SCH ×4 (07:39→21:12)
[2017-09-25] MEDS: LISINOPRIL 10 MG TAB PO SCH (08:36)
[2017-09-25] MEDS: FLUCONAZOLE 150 MG TAB PO SCH (08:36)
[2017-09-25] MEDS: BUDESONIDE IH SCH ×2 (08:37→21:50)
[2017-09-25] MEDS: ENOXAPARIN 40 MG/0.4 ML SYR SC SCH (08:37)
[2017-09-25] MEDS: [UNRECOGNIZED DRUG - OTHER] IH SCH ×2 (08:37→21:50)
[2017-09-25] MEDS: FORMOTEROL IH SCH ×2 (08:37→21:50)
[2017-09-25] MEDS: MAGNESIUM OXIDE 400 MG TAB PO PRN ×2 (08:42→20:13)
[2017-09-25] MEDS ORDERED: FLUCONAZOLE 150 MG PO SCH (09:00)
[2017-09-25] MEDS ORDERED: NON-FORMULARY NEW DRUG (Metformin Hcl [Metformin Hcl Er] 500 MG) PO SCH (09:00)
[2017-09-25] MEDS ORDERED: NON-FORMULARY NEW DRUG (Lisinopril [Zestril 10 Mg (*)] 10 MG) PO SCH (09:00)
--- NOTE | 2017-09-25 10:13 | HOSPPROG ---
Hospitalist Progress Note Assessment/Plan: Patient is a 77-year-old female with a past medical history with hypertension and COPD. She was evaluated by her primary care provider and was prescribed metformin for new diagnosed diabetes. She was sent to the hospital for further evaluation. * diabetes type 2, newly diagnosed -A1c is pending -glucoses better today -started on ADA diet -nursing staff says she has done well with checking glucoses & giving herself insulin -she had recently been on steroids -was started on metformin, but now having frequent bouts of diarrhea, bloating and feeling poorly on this medication -will do a trial of a sulfonylurea, small dose. Reviewed w her her hx with allergy to sulfa abx, she thinks she had some itching, it was more than 50 years ago. -Januvia not an option at this time, she has thrush and this drug can make it worse * abdominal discomfort with bloating & diarrhea -occurred w initiation of Metformin -abdominal xray pending * bilateral lower extremity persistent cramping -she says this was better when taking magnesium -it's ongoing * benign hypertension -on lisinopril * thrush -on Diflucan * COPD -on Symbicort *Chronic headache -no complaints * hyponatremia -resolved *hx of bronchomalacia -she is c/o recurrent shortness of breath -oxygen levels stable on room air -reviewed her chest xray/ shows bronchitis *Plan: Patient will require another midnight stay. She has multiple complaints and is feeling poorly. This will make her inpatient status. Recommending she f/u with Tap Out Operator at discharge. Subjective: Cookie says she feels 'foggy' since July of this year, feels bloated, has leg cramping. Objective: Vital Signs Temp Pulse Resp BP Pulse Ox 36.1 C 64 16 170/91 H 96 09/25/17 07:50 09/25/17 07:50 09/25/17 07:50 09/25/17 07:50 09/25/17 07:50 Laboratory Results 09/24/17 05:18 09/24/17 12:10 09/24/17 09/25/17 09/26/17 05:59 05:59 05:59 Intake Total 1500 4500 Output Total 3000 Balance 1500 1500 PT 12.4 SEC (12.0-15.0) 09/23/17 22:36 INR 0.93 (0.83-1.16) 09/23/17 22:36 - Physical Exam Constitutional: uncomfortable Eyes: PERRL Ears, Nose, Mouth, Throat: hearing normal Cardiovascular: regular rate and rhythym Respiratory: no respiratory distress Gastrointestinal: normoactive bowel sounds, distension, other (nontender) Skin: warm Musculoskeletal: full muscle strength Neurologic: AAOx3 Psychiatric: interacting appropriately, anxious ICD10 Worksheet Patient Problems: Problems Problem Status Onset Dehydration Acute Hyperglycemia Acute Acute exacerbation of chronic bronchitis Acute Bronchitis Acute Hypoxia Acute Respiratory distress Acute Thrush, oral Acute
--- NOTE | 2017-09-25 11:35 | PDMN ---
Medical Necessity Medical necessity: C/M review: est. > 2 MN LOS for eval and TX of acute and persistent newly diagnosed type 2 diabetes, hyperglycemia, abdominal discomfort with bloating, bilateral lower extremity persistent cramping, hyponatremia, requiring planned 09/25/2017 Doppler venous US bilateral lower extremities, CXR , abdominal xray, 09/26/2017 recheck na lab, ongoing titration of subcutaneous insulin (initiated 09/14/2017), monitoring blood glucose, acute inpt ST, comorbid benign hypertension, thrush, COPD, chronic headache, hx patient started on oral metformin just prior to this admission but now having frequent bouts of diarrhea per 09/25/2017 Hospitalist progress note.
[2017-09-26 02:25] LABS: HEMOGLOBIN A1C 14.2 % (4.0-6.0)
[2017-09-26] MEDS ORDERED: INSULIN LISPRO 100 UNIT/ML SC ONE (03:44)
[2017-09-26 05:31] LABS: ALANINE AMINOTRANSFERASE 38 IU/L (9-52); ALBUMIN 3.4 g/dL (3.5-5.0); ALKALINE PHOSPHATASE 89 IU/L (38-126); ANION GAP 11 mEq/L (8-16); ASPARTATE AMINOTRANSFERASE 28 IU/L (14-46); BILIRUBIN,TOTAL 0.3 mg/dL (0.1-1.4); CALCIUM 9.5 mg/dL (8.5-10.4); CARBON DIOXIDE 27 mEq/l (22-31); CHLORIDE 104 mEq/L (97-110); CREATININE 0.6 mg/dL (0.6-1.0); GLOMERULAR FILTRATION RATE > 60; GLUCOSE 222 mg/dL (70-100); POTASSIUM 4.6 mEq/L (3.5-5.2); SODIUM 142 mEq/L (134-144); TOTAL PROTEIN 5.9 g/dL (6.3-8.2)
[2017-09-26] MEDS: NYSTATIN SUSP 500000 UNIT/5 ML UDCUP PO SCH ×4 (06:15→21:19)
[2017-09-26] MEDS: ENOXAPARIN 40 MG/0.4 ML SYR SC SCH (08:02)
[2017-09-26] MEDS: LISINOPRIL 10 MG TAB PO SCH (08:02)
[2017-09-26] MEDS: FLUCONAZOLE 150 MG TAB PO SCH (08:06)
[2017-09-26] MEDS: FORMOTEROL IH SCH ×2 (08:07→21:18)
[2017-09-26] MEDS: BUDESONIDE IH SCH ×2 (08:07→21:18)
[2017-09-26] MEDS: [UNRECOGNIZED DRUG - OTHER] IH SCH ×2 (08:07→21:18)
[2017-09-26 08:09] LABS: GLUCOSE 360 mg/dL (70-100)
[2017-09-26] MEDS: INSULIN LISPRO 100 UNIT/ML SC SCH ×3 (08:30→17:09)
[2017-09-26] MEDS: MAGNESIUM OXIDE 400 MG TAB PO PRN ×2 (08:32→21:42)
[2017-09-26] MEDS ORDERED: glipiZIDE 5 MG TAB PO SCH (09:00)
[2017-09-26] MEDS ORDERED: LISINOPRIL 10 MG TAB PO ONE (10:53)
[2017-09-26] MEDS: INSULIN GLARGINE 100 UNITS/ML SYRINGE SC SCH (11:48)
--- NOTE | 2017-09-26 17:39 | HOSPPROG ---
Hospitalist Progress Note Assessment/Plan: Patient is a 77-year-old female with a past medical history with hypertension and COPD. She was evaluated by her primary care provider and was prescribed metformin for new diagnosed diabetes. She was sent to the hospital for further evaluation. # diabetes type 2, newly diagnosed- HBA1c - 14 too high for oral med control - stopping oral medications and starting glargine 10 units daily RICHY - pt will need glargine at dc and is completing insulin training currently with nursing - discussed and reviewed ADA diet - will measure BS BID at home for clinic titration of insulin as outpt # abdominal discomfort with bloating & diarrhea- resolving - dc Metformin # bilateral lower extremity persistent cramping- recommend banana in am and home magnesium supplements # benign hypertension -increasing lisinopril to 20mg today # thrush -cont Diflucan # COPD- oxygen saturation 95% on RA - CXR (personally reviewed and interpreted) no infiltrates -cont Symbicort # Chronic headache # hypovolemic hyponatremia -resolved # dispo - > 2MN as has required ongoing med titration and sx control - expect dc tomorrow likely with home health I have discussed the case with RN - adding glargine today - continue injection education Subjective: many sx - feels fuzzy in the head Objective: Vital Signs Temp Pulse Resp BP Pulse Ox 36.5 C 67 17 161/81 H 93 09/26/17 16:00 09/26/17 16:00 09/26/17 16:00 09/26/17 16:00 09/26/17 16:00 Laboratory Results 09/26/17 07:45 09/25/17 09/26/17 09/27/17 05:59 05:59 05:59 Intake Total 1190 Output Total 3600 Balance -2410 PT 12.4 SEC (12.0-15.0) 09/23/17 22:36 INR 0.93 (0.83-1.16) 09/23/17 22:36 - Physical Exam Constitutional: appears nourished Eyes: anicteric sclera Ears, Nose, Mouth, Throat: moist mucous membranes Cardiovascular: regular rate and rhythym Respiratory: no respiratory distress, No expiratory wheeze, No inspiratory crackles Gastrointestinal: normoactive bowel sounds Genitourinary: no bladder fullness Skin: warm Musculoskeletal: No asymmetric calves Neurologic: AAOx3 Psychiatric: interacting appropriately Lymph, Heme, Immunologic: no cervical LAD ICD10 Worksheet Patient Problems: Problems Problem Status Onset Dehydration Acute Hyperglycemia Acute Acute exacerbation of chronic bronchitis Acute Bronchitis Acute Hypoxia Acute Respiratory distress Acute Thrush, oral Acute
[2017-09-27] MEDS: ACETAMINOPHEN 325 MG TAB PO PRN (00:17)
[2017-09-27 05:20] LABS: HEMATOCRIT 35.3 % (38.0-47.0); HEMOGLOBIN 12.8 g/dL (12.6-16.3); MEAN CELL HEMOGLOBIN 33.5 pg (27.9-34.1); MEAN CELL HEMOGLOBIN CONCENTR. 36.3 g/dL (32.4-36.7); MEAN CELL VOLUME 92.4 fL (81.5-99.8); RED BLOOD CELL COUNT 3.82 10^6/uL (4.18-5.33); RED CELL DISTRIBUTION WIDTH 14.2 % (11.5-15.2)
[2017-09-27] MEDS: NYSTATIN SUSP 500000 UNIT/5 ML UDCUP PO SCH ×2 (05:27→12:16)
[2017-09-27 05:39] LABS: ANION GAP 8 mEq/L (8-16); CALCIUM 8.9 mg/dL (8.5-10.4); CARBON DIOXIDE 24 mEq/l (22-31); CHLORIDE 105 mEq/L (97-110); CREATININE 0.5 mg/dL (0.6-1.0); GLOMERULAR FILTRATION RATE > 60; GLUCOSE 281 mg/dL (70-100); POTASSIUM 4.3 mEq/L (3.5-5.2); SODIUM 137 mEq/L (134-144)
[2017-09-27 08:08] VITALS: BP 167/92; PULSE 61; RESP 16; TEMP 98.6; O2SAT 91
[2017-09-27] MEDS: INSULIN LISPRO 100 UNIT/ML SC SCH ×2 (08:34→12:14)
[2017-09-27] MEDS: INSULIN GLARGINE 100 UNITS/ML SYRINGE SC SCH (08:35)
[2017-09-27] MEDS: MAGNESIUM OXIDE 400 MG TAB PO PRN (08:38)
[2017-09-27] MEDS: FLUCONAZOLE 150 MG TAB PO SCH (08:40)
[2017-09-27] MEDS: FORMOTEROL IH SCH (08:40)
[2017-09-27] MEDS: [UNRECOGNIZED DRUG - OTHER] IH SCH (08:40)
[2017-09-27] MEDS: BUDESONIDE IH SCH (08:40)
[2017-09-27] MEDS: ENOXAPARIN 40 MG/0.4 ML SYR SC SCH (08:41)
[2017-09-27] MEDS ORDERED: LISINOPRIL 20 MG TAB PO SCH (09:00)
--- NOTE | 2017-09-27 10:41 | PDIAF ---
- Diagnosis Diagnosis: new dx diabetes Code Status: Full Code - Medication Management Discharge Medications: Medications to Continue on Transfer Herbals/Supplements -Info Only 1 ea PO DAILY 12/19/15 [Last Taken Unknown] Cyanocobalamin [Vitamin B12 1000MCG/ML (*)] 1,000 mcg IM Q30D 08/05/17 [Last Taken 09/17/17] Budesonide/Formoterol 160/4.5 [Symbicort 160-4.5 Mcg Inh (*)] 2 puffs IH BID mdi 08/06/17 [Last Taken 09/23/17 PM] Fluconazole [Diflucan (*)] 150 mg PO DAILY 09/23/17 [Last Taken 09/23/17] Magnesium Oxide [Magnesium Oxide 500 mg] 500 mg PO BID PRN 09/24/17 [Last Taken Unknown] Insulin Glargine [Lantus 100 UNITS/ML (*)] 10 units SC DAILY #1 btl 09/27/17 [ Last Taken Unknown] Lisinopril [Zestril 40 mg (*)] 40 mg PO DAILY #30 tab 09/27/17 [Last Taken Unknown] Syringe [Syringe, Insulin] 1 syr SC DAILY #30 syr 09/27/17 [Last Taken Unknown] Discharge Medications: Refer to the Discharge Home Medication list for PRN reason. - Orders Services needed: Home Care, Registered Nurse Home Care Face to Face: I certify that this patient was under my care and that I had the required [id number] encounter meeting the encounter requirements on the discharge day. My findings support the fact that the patient is homebound as defined in Home Care Face to Face Continued: CMS Chapter 7 Medicare Benefits Manual 30.1.1 , The condition of the patient is such that there exists a normal inability to leave home and consequently, leaving home would require a considerable and taxing effort. Isolation Type: None Diet Recommendation: no restrictions on diet Diet Texture: Regular Texture Diet - Follow Up Care Current Providers and Referrals: ANTOINETTE SOSA [Other] - As per Instructions
--- NOTE | 2017-09-27 14:57 | ASMTCMCOM ---
CM Note CM Note Notes: Pt medically stable for d/c with [facility] RN and family support. Orders sent in [employer]. Nicole HINOJOSA visited pt today. Date Signed: 09/27/2017 02:57 PM Electronically Signed By:PER Winter
--- NOTE | 2017-09-27 14:58 | ASDISCHSUM ---
Discharge Information Plan Status:Home with Home Health Medically Cleared to Leave: Discharge Date:09/27/2017 02:42 PM D/C Disposition:Home Health Service ADT D/C Disposition:Home, Routine, Self-Care Projected Discharge Date:09/26/2017 11:00 AM Transportation at D/C: Discharge Delay Reason: Follow-Up Date:09/26/2017 11:00 AM Discharge Slot: Final Diagnosis: Placement Information Referral Type:*Home Health Care Services Referral ID:[id number] Provider Name:[facility] [place] Address 1:[address] [address] Address 2: City:[place] Selection Factors: State:[place] Patient Contact Information Contact Name:RADHA Relationship:Daughter Address:[address] City:[place] Alternate Phone: State/Zip Code:[place] [address] Email: Financial Information Financial Class: Primary Plan Desc:MEDICARE INPATIENT Primary Plan Number:[id number] Secondary Plan Desc:[facility] Secondary Plan Number:[id number] Assessment Information [facility] CM Progress Note CM Note CM Note Notes: Pt has recent dx of diabetes and was admitted for hyperglycemia. Pt lives alone and will benefit from HC RN at [place]. Met with pt who agreed with HC RN. Referral faxed to [facility]. Date Signed: 09/24/2017 11:13 AM Electronically Signed By:Dalia Tam LCSW [facility] CM Progress Note CM Note CM Note Notes: Pt medically stable for d/c with [facility] RN and family support. Orders sent in [employer]. Nicole HINOJOSA visited pt today. Date Signed: 09/27/2017 02:57 PM Electronically Signed By:PER Winter Intervention Information Intervention Type:*IM-Signed Date of Service:09/27/2017 11:33 AM Patient Type:Inpatient Staff Member:Laura Lopez Hours: Discipline: Severity: Comment:
--- NOTE | 2017-09-27 19:12 | GDS ---
[f rep st] DISCHARGE SUMMARY DISCHARGE DIAGNOSES: 1. New diagnosis of diabetes. 2. Uncontrolled hypertension. 3. Thrush. 4. History of bronchiectasis. HISTORY OF PRESENT ILLNESS: This is a 77-year-old female with a new diagnosis of diabetes. The naheed ent was initiated on metformin oral therapy in the outpatient setting, and presented with abdominal d iscomfort, bloating, and diarrhea. For details of the patient's initial presentation, please see the history and physical dated 09/25/2017. CONSULTATIVE SERVICES: None. PROCEDURES: None. HOSPITAL COURSE: By issue. 1. New diagnosis of diabetes. The patient presented symptomatic from low-dose metformin. Hemoglobi n A1c obtained at admission measured 14. Once that result was available, we aborted any attempt at u sing oral agents for glycemic control. Initiated long-acting insulin with Lantus. The patient recei mayte diabetic education, nursing education, nutritional education while in the hospital. She was star jaime on 10 units of Lantus, and had a range in her blood sugars from high 80s to low 300s, although th is was improved from the preceding 24 hours without Lantus. We are discharging on this dose of Lantu s with instructions for the patient to check her blood sugars twice a day, and present to our outpati ent clinic next week with her blood sugar log, to allow primary care provider appropriate information for up-titration of her Lantus therapy. The patient was being discharged this afternoon, and was stone ving to the clinic for her for diabetic nutrition education session. 2. Uncontrolled hypertension. The patient's systolic blood pressures were ranging in the 140s-160s. We up-titrated her lisinopril therapy to 40 mg daily on discharge. We are attempting to keep her m edication regimen quite simple, as the patient very rattled about the new diagnosis and new medicatio ns being added to her list. MEDICATIONS AT THE TIME OF DISCHARGE: Please reference med rec printed on 09/27/2017. FOLLOWUP APPOINTMENTS: Include today with adult educator at our outpatient clinic, as well as a t o be scheduled appointment with her primary care provider next week for her first post disposition fo llowup and presentation of recorded home blood sugar measurements. PENDING STUDIES: None. TIME SPENT: I spent greater than 30 minutes in the planning and coordination of this discharge. /[id number]/MODL
== END 2017-09-27 14:42 | disposition home or self-care (01) | DRG 638 ==
LOC: INTOOBSV 09-24 00:15 → OBSVTOIN 09-24 00:15 → INTOOBSV 09-24 00:17 → OBSVTOIN 09-24 00:17 → F3N 09-24 01:21 → OBSVTOIN 09-25 11:19
PROVIDERS: ADMIT Family Medicine; ATTEND Hospitalist
DX: E11.65 Type 2 diabetes mellitus with hyperglycemia (principal); I10 Essential (primary) hypertension; E87.1 Hypo-osmolality and hyponatremia; E87.8 Other disorders of electrolyte and fluid balance, not elsewhere classified; B37.0 Candidal stomatitis; R51 Headache; R14.0 Abdominal distension (gaseous); R10.9 Unspecified abdominal pain; J44.9 Chronic obstructive pulmonary disease, unspecified; Z87.891 Personal history of nicotine dependence
CPT/HCPCS: 82947-QW; 92507-GN; 92523-GN; G0008; G0378; G9168-GO-CI; G9169-GN-CH; J1650; J1815

== ENCOUNTER 2019-03-12 14:24 | Inpatient (IN) | payer OTHER ==
[2019-03-12] MEDS ORDERED: methylPREDNISolone SOD SUCC 125 MG/2 ML VIAL IVP ONE (15:27)
[2019-03-12] MEDS ORDERED: LEVALBUTEROL 1.25 MG/3 ML DEYVIAL IH ONE (15:27)
--- NOTE | 2019-03-12 15:31 | EDPHY ---
H & P Stated Complaint: Cough, abnormal CXR Time Seen by Provider: 03/12/19 15:17 HPI/ROS: CHIEF COMPLAINT: Persistent cough, hypoxia HISTORY OF PRESENT ILLNESS: 78-year-old female with COPD presents with a one- week history of cough. Onset of a frequent cough 1 week ago, gradually increasing. The cough is interfering with her sleep and is associated with achiness in her shoulders and chest because of frequent coughing. She was seen at urgent care prior to arrival and chest x-ray reportedly revealed an infiltrate. She was sent here for further evaluation. She denies shortness of breath, fever or other URI symptoms. No chest pain. REVIEW OF SYSTEMS: complete 10 point ROS reviewed and is negative except for the noted elements in the HPI Source: Patient - Personal History Current Tetanus Diphtheria and Acellular Pertussis (TDAP): Unsure - Medical/Surgical History Hx Asthma: No Hx Chronic Respiratory Disease: Yes Hx Diabetes: Yes Hx Cardiac Disease: No Hx Renal Disease: No Hx Cirrhosis: No Hx Alcoholism: No Hx HIV/AIDS: No Hx Splenectomy or Spleen Trauma: Yes Other PMH: PMH: Chronic bronchitis. PSH: splenectomy, tonsillectomy. last bronchoscopy dec 2015. DM type 1 - Social History Smoking Status: Former smoker Alcohol Use: Sober Drug Use: None - Physical Exam Exam: General Appearance: Alert, pleasant Eyes: Pupils equal and round, no conjunctival pallor or injection ENT, Mouth: Mucous membranes moist Neck: Normal inspection Respiratory: Frequent cough, end expiratory wheezing Cardiovascular: Regular rate and rhythm Gastrointestinal: Abdomen is soft and nontender Neurological: A&O, nonfocal, normal gait Skin: Warm and dry Extremities: Normal inspection Psychiatric: Mood and affect normal Constitutional: Initial Vital Signs Temperature (C) 36.6 C 03/12/19 14:34 Heart Rate 84 03/12/19 14:34 Respiratory Rate 20 03/12/19 14:34 Blood Pressure 141/67 H 03/12/19 14:34 O2 Sat (%) 92 03/12/19 14:34 O2 Delivery Mode Room Air O2 (L/minute) 2 Allergies/Adverse Reactions: codeine [Codeine] Allergy (Mild, Verified 08/05/17 11:09) Rash Penicillins Allergy (Mild, Verified 01/16/15 14:05) Rash Sulfa (Sulfonamide Antibiotics) Allergy (Mild, Verified 01/16/15 14:05) Rash albuterol Allergy (Verified 08/05/17 11:09) Other-Enter Comments fluticasone propionate [From Flovent Diskus] Allergy (Verified 08/05/17 11:09) Other-Enter Comments hydrocodone Allergy (Verified 09/23/17 22:09) salmeterol xinafoate [From Advair Diskus] Allergy (Verified 08/05/17 11:09) Other-Enter Comments Home Medications: Medication Instructions Recorded Herbals/Supplements -Info Only 1 ea PO DAILY 12/19/15 Budesonide/Formoterol 160/4.5 2 puffs IH BID mdi 08/06/17 [Symbicort 160-4.5 Mcg Inh (*)] Insulin Aspart [novoLOG] 1 - 15 unit SC AC 03/12/19 Insulin Glargine [Lantus 100 19 units SC HS 03/12/19 UNITS/ML] Levalbuterol Inhaler [Xopenex Hfa 1 puffs IH Q4H PRN 03/12/19 Inhaler (*)] Medical Decision Making - Diagnostics Imaging Results: Imaging Impressions Chest X-Ray 03/12/19 15:28 Impression: Bilateral lower lobe airspace consolidation compatible with pneumonia, right greater than left. Consider aspiration. Imaging: I viewed and interpreted images myself ED Course/Re-evaluation: This immunocompromised patient with h/o splenectomy presents with a persistent cough and bronchospasm. She is nontoxic-appearing and vital signs are normal. Xopenex was given on patient arrival at her request. Solu-Medrol 125 mg IV given. Chest x-ray reveals bilateral lower lobe infiltrates, consistent with pneumonia. Rocephin and Zithromax IV given for pneumonia after blood cultures were drawn. She does not meet SIRS criteria. [place] better after Xopenex, with decreased coughing. Repeat lung exam reveals good air exchange and decreased wheezing. The hospitalist service was consulted for admission. Differential Diagnosis: Differential diagnosis includes though it is not limited to acute bronchitis, pneumonia, pneumothorax, pulmonary embolism, aortic dissection, pericarditis, acute coronary syndrome. - Data Points Laboratory Results: Laboratory Results 03/12/19 15:55 03/12/19 15:55 03/12/19 03/12/19 15:55 15:55 WBC 10.16 10^3/uL H 10^3/uL (3.80-9.50) RBC 3.90 10^6/uL L 10^6/uL (4.18-5.33) Hgb 12.8 g/dL g/dL (12.6-16.3) Hct 35.2 % L % (38.0-47.0) MCV 90.3 fL fL (81.5-99.8) MCH 32.8 pg pg (27.9-34.1) MCHC 36.4 g/dL g/dL (32.4-36.7) RDW 14.4 % % (11.5-15.2) Plt Count 239 10^3/uL 10^3/uL (150-400) MPV 9.5 fL fL (8.7-11.7) Neut % (Auto) Not Reported Lymph % (Auto) Not Reported Garrett % (Auto) Not Reported Eos % (Auto) Not Reported Baso % (Auto) Not Reported Nucleat RBC Rel Count Not Reported Absolute Neuts (auto) Not Reported Absolute Lymphs (auto) Not Reported Absolute Monos (auto) Not Reported Absolute Eos (auto) Not Reported Absolute Basos (auto) Not Reported Absolute Nucleated RBC Not Reported Immature Gran % Not Reported Seg Neutrophils % 69.0 % % Band Neutrophils % 11.0 % % Lymphocytes % 17.0 % % Monocytes % 3.0 % % Eosinophils % 0.0 % % Basophils % 0.0 % % Metamyelocytes % 0.0 % % Myelocytes % 0.0 % % Promyelocytes % 0.0 % % Blast Cells % 0.0 % % Immature Gran # Not Reported Absolute Seg Neuts 7.01 10^3/uL H 10^3/uL (1.70-6.50) Absolute Band Neuts 1.12 10^3/uL H 10^3/uL (0.00-0.70) Absolute Lymphocytes 1.73 10^3/uL 10^3/uL (1.00-3.00) Absolute Monocytes 0.30 10^3/uL 10^3/uL (0.30-0.80) Absolute Eosinophils 0.00 10^3/uL L 10^3/uL (0.03-0.40) Absolute Basophils 0.00 10^3/uL L 10^3/uL (0.02-0.10) Absolute Metamyelocyte 0.00 10^3/mL 10^3/mL (0.00-0.00) Absolute Myelocytes 0.00 10^3/mL 10^3/mL (0.00-0.00) Absolute Promyelocytes 0.00 10^3/uL 10^3/uL (0.00-0.00) Absolute Plasma Cells 0.00 10^3/uL 10^3/uL (0.00-0.00) RBC/WBC/PLT Morphology NORMAL (NORMAL) Absolute Blast Cells 0.00 10^3/uL 10^3/uL (0.00-0.00) Plasma Cells % 0.0 % % Smudge Cells 1+ H Platelet Estimate ADEQUATE (ADEQ) Sodium 124 mEq/L L mEq/L (135-145) Potassium 4.3 mEq/L mEq/L (3.5-5.2) Chloride 92 mEq/L L mEq/L (97-110) Carbon Dioxide 21 mEq/l L mEq/l (22-31) Anion Gap 11 mEq/L mEq/L (6-14) BUN 18 mg/dL mg/dL (7-23) Creatinine 0.6 mg/dL mg/dL (0.6-1.0) Estimated GFR > 60 Glucose 309 mg/dL H mg/dL (70-100) Calcium 9.0 mg/dL mg/dL (8.5-10.4) Medications Given: Insulin Glargine (Lantus Syringe) 19 units SC HS STEPHEN Stop: 09/08/19 20:59 Last Admin: 03/12/19 20:30 Dose: 19 units Insulin Human Lispro (Humalog Lispro) 0 unit SC TIDMEAL STEPHEN PRN Reason: Protocol Stop: 09/08/19 17:59 Last Admin: 03/12/19 19:10 Dose: 8 units Discontinued Medications Azithromycin (Zithromax) 500 mg PO EDNOW ONE PRN Reason: Protocol Stop: 03/12/19 16:24 Last Admin: 03/12/19 17:11 Dose: 500 mg Ceftriaxone Sodium/Dextrose (Rocephin 1 Gm (Premix)) 50 mls @ 100 mls/hr IV EDNOW ONE PRN Reason: Protocol Stop: 03/12/19 16:52 Last Admin: 03/12/19 17:11 Dose: 50 mls Levalbuterol (Xopenex 1.25mg Neb) 1.25 mg IH EDNOW ONE Stop: 03/12/19 15:28 Last Admin: 03/12/19 16:29 Dose: 1.25 mg Methylprednisolone Sodium Succinate (Solu-Medrol) 125 mg IVP EDNOW ONE Stop: 03/12/19 15:28 Last Admin: 03/12/19 15:45 Dose: 125 mg Departure - Departure Disposition: [facility] Inpatient Acute Clinical Impression: Chronic obstructive pulmonary disease with acute exacerbation Pneumonia Qualifiers: Pneumonia type: due to unspecified organism Laterality: bilateral Lung location : lower lobe of lung Qualified Code(s): J18.1 - Lobar pneumonia, unspecified organism Condition: Fair
[2019-03-12 16:07] LABS: PLATELET COUNT 239 10^3/uL (150-400)
[2019-03-12] MEDS ORDERED: AZITHROMYCIN 250 MG TAB PO ONE (16:23)
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
[2019-03-12] MEDS ORDERED: LEVALBUTEROL INHALER 200 PUFFS/15 GM MDI IH PRN (17:34)
[2019-03-12] MEDS ORDERED: D50W 25 GM/50 ML SYR IVP PRN (17:34)
[2019-03-12] MEDS: INSULIN LISPRO 100 UNIT/ML SC SCH (19:10)
[2019-03-12] MEDS ORDERED: IPRATROPIUM BROMIDE 0.5 MG/2.5 ML DEYVIAL IH PRN (19:30)
[2019-03-12] MEDS: INSULIN GLARGINE 100 UNITS/ML UNIT SC SCH (20:30)
[2019-03-12] MEDS ORDERED: IBUPROFEN 200 MG TAB PO ONE (20:32)
[2019-03-12] MEDS: NS 1,000 ML IV SCH (20:39)
[2019-03-12] MEDS ORDERED: IPRATROPIUM/ALBUTEROL 3 ML DEYVIAL IH SCH (21:00)
--- NOTE | 2019-03-12 21:07 | CPEKG ---
Test Reason : OPEN Blood Pressure : / mmHG Vent. Rate : 078 BPM Atrial Rate : 078 BPM P-R Int : 172 ms QRS Dur : 082 ms QT Int : 369 ms P-R-T Axes : 060 040 028 degrees QTc Int : 421 ms Sinus rhythm Consider left ventricular hypertrophy Confirmed by Amy Live ([id number]) on 03/12/2019 9:07:17 PM Referred By: Amy Live Confirmed By:Amy Live
[2019-03-12] MEDS: LEVALBUTEROL 1.25 MG/3 ML DEYVIAL IH SCH (22:09)
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
[2019-03-13] MEDS ORDERED: INSULIN LISPRO 100 UNIT/ML SC ONE ×3 (04:08→16:00)
[2019-03-13] MEDS: LEVALBUTEROL 1.25 MG/3 ML DEYVIAL IH SCH ×4 (04:34→22:17)
[2019-03-13 07:06] LABS: PLATELET COUNT 230 10^3/uL (150-400)
[2019-03-13] MEDS: INSULIN LISPRO 100 UNIT/ML SC SCH ×3 (07:41→17:47)
[2019-03-13] MEDS: ENOXAPARIN 40 MG/0.4 ML SYR SC SCH (07:41)
[2019-03-13] MEDS: AZITHROMYCIN IV 500 MG in NS 250 ML IV SCH (07:42)
[2019-03-13] MEDS: NS 1,000 ML IV SCH (08:58)
[2019-03-13] MEDS ORDERED: predniSONE 20 MG TAB PO SCH (09:00)
[2019-03-13] MEDS ORDERED: methylPREDNISolone SOD SUCC 1 GM in D5W 100 ML IV SCH (09:00)
[2019-03-13] MEDS: IBUPROFEN 200 MG TAB PO PRN ×2 (09:26→15:56)
[2019-03-13] MEDS: BENZONATATE 100 MG CAP PO PRN ×2 (11:58→15:56)
--- NOTE | 2019-03-13 16:08 | ASMTCMCOM ---
CM Note CM Note Notes: CM spoke with pt in the room and with pt's RN. Pt lives alone and independently and has a son and daughter locally who look in on her, as well as 7 great grandchildren. Pt admitted for PNA and is independent in the room with no therapies ordered. Anticpated that pt will dc independently. CM to follow. D/C Plan: Independent Date Signed: 03/13/2019 04:07 PM Electronically Signed By:Bria Rowley
[2019-03-13] MEDS: INSULIN GLARGINE 100 UNITS/ML UNIT SC SCH (20:21)
--- NOTE | 2019-03-13 21:09 | HOSPPROG ---
Hospitalist Progress Note Assessment/Plan: 78 y/o w/hx of COPD and DM1 presents w/1 week of persistent cough, post-nasal drip, and body aches. First encounter, chart reviewed. #Superimposed pneumonia w/acute COPD exacerbation -Blood cultures pending -Resp panel refused -Received neb tx, azithro+ceftriaxone, and solu-medrol in ED -cont abx and duo nebs, no steriods -Cont pulse ox #Hyponatremia -likely prerenal -Urine Na low -responding to IVF #DM1 -Diagnosed late in her life -A1c 7.7% -ISS in house, cont home glargine -elevated sugar 2/2 solumedrol -extra insuline given #COPD -Quit smoking in 2017 after a 40 pack-year -Cont PRN home inhalers, holding Symbicort #Low TSH - in setting of acute illness -FU PCP Diet: Carb-controlled Code: Full VTE ppx: Lovenox subq Dispo: Change to inpt status requires further treatment in hospital setting Subjective: C/O cough. No CP. Feels better then yesterday. Objective: Vital Signs Temp Pulse Resp BP Pulse Ox 36.9 C 82 18 122/68 H 94 03/13/19 18:55 03/13/19 18:55 03/13/19 18:55 03/13/19 18:55 03/13/19 18:55 Laboratory Results 03/13/19 06:44 03/13/19 06:44 03/12/19 03/13/19 03/14/19 05:59 05:59 05:59 Intake Total 60 Balance 60 - Physical Exam Constitutional: no apparent distress, appears nourished, not in pain Eyes: PERRL, anicteric sclera, EOMI Ears, Nose, Mouth, Throat: moist mucous membranes, hearing normal, ears appear normal Cardiovascular: regular rate and rhythym, No JVD, No edema Respiratory: no respiratory distress, no rales or rhonchi, reduced air movement Gastrointestinal: normoactive bowel sounds, No tenderness, No ascites Skin: warm, normal color, mottled Musculoskeletal: normal joint ROM, no joint effusions, generalized weakness Neurologic: AAOx3 Psychiatric: not encephalopathic, anxious, poor judgement ICD10 Worksheet Patient Problems: Problems Problem Status Onset Respiratory distress Acute Acute exacerbation of chronic bronchitis Acute Hypoxia Acute Bronchitis Acute Thrush, oral Acute Hyperglycemia Acute Dehydration Acute Chronic obstructive pulmonary disease with acute exacerbation Acute Pneumonia Acute
[2019-03-13] MEDS: guaiFENesin 600 MG TAB.ER PO SCH (22:02)
[2019-03-14] MEDS: NS 1,000 ML IV SCH (00:21)
[2019-03-14] MEDS: IBUPROFEN 200 MG TAB PO PRN ×2 (05:03→15:51)
[2019-03-14] MEDS: LEVALBUTEROL 1.25 MG/3 ML DEYVIAL IH SCH ×4 (05:31→22:17)
[2019-03-14] MEDS: INSULIN LISPRO 100 UNIT/ML SC SCH ×3 (08:14→18:34)
[2019-03-14] MEDS: guaiFENesin 600 MG TAB.ER PO SCH ×2 (08:16→21:52)
[2019-03-14] MEDS: ENOXAPARIN 40 MG/0.4 ML SYR SC SCH (08:27)
[2019-03-14] MEDS: AZITHROMYCIN IV 500 MG in NS 250 ML IV SCH (09:34)
--- NOTE | 2019-03-14 09:59 | PDMN ---
Medical Necessity Medical necessity: Change to IP, as of 03/13/19, per ASSISTANT AT SURGERY & MCG [id number]; los >2 mn for ongoing management of superimposed pneumonia w/acute COPD exacerbation & hyponatremia (Na 129); cxs pending; requiring IV abx, IVFs & respiratory supportive care; comorbid advanced age, diabetes
--- NOTE | 2019-03-14 12:58 | HOSPPROG ---
Hospitalist Progress Note Assessment/Plan: 78 y/o w/hx of COPD and DM1 presents w/1 week of persistent cough, post-nasal drip, and body aches. #Superimposed pneumonia w/acute COPD exacerbation -Blood cultures NGTD -Resp panel negative -Received neb tx, azithro+ceftriaxone, and solu-medrol in ED -cont abx and duo nebs, no steriods -Cont pulse ox #Hyponatremia -likely prerenal -Urine Na low -responding to IVF #DM1 -Diagnosed late in her life -A1c 7.7% -ISS in house, cont home glargine -elevated sugar 2/2 solumedrol -extra insulin given #COPD -Quit smoking in 2017 after a 40 pack-year -Cont PRN home inhalers, holding Symbicort #Low TSH - in setting of acute illness - FU PCP Diet: Carb-controlled Code: Full VTE ppx: Lovenox subq Dispo: requires further treatment in hospital setting potential DC in 1-2 days if cont improvements Subjective: Coughing a lot. No other issues. Still feels sick. Objective: Vital Signs Temp Pulse Resp BP Pulse Ox 36.8 C 82 16 140/61 H 92 03/14/19 11:58 03/14/19 11:58 03/14/19 11:58 03/14/19 11:58 03/14/19 11:58 Microbiology 03/13/19 22:12 Respiratory Panel (PCR) - Final Nasal, Sinus - Swab No Organism Detected By Pcr Laboratory Results 03/14/19 04:46 03/14/19 04:46 - Physical Exam Constitutional: no apparent distress, appears nourished Eyes: PERRL, anicteric sclera Ears, Nose, Mouth, Throat: moist mucous membranes, hearing normal Cardiovascular: No JVD, No edema Respiratory: no rales or rhonchi, reduced air movement Gastrointestinal: No tenderness, No ascites Skin: warm, normal color Musculoskeletal: no joint effusions, generalized weakness Neurologic: AAOx3 Psychiatric: interacting appropriately, not anxious, not encephalopathic ICD10 Worksheet Patient Problems: Problems Problem Status Onset Respiratory distress Acute Acute exacerbation of chronic bronchitis Acute Hypoxia Acute Bronchitis Acute Thrush, oral Acute Hyperglycemia Acute Dehydration Acute Chronic obstructive pulmonary disease with acute exacerbation Acute Pneumonia Acute
--- NOTE | 2019-03-14 17:06 | GHP ---
[f rep st] HISTORY AND PHYSICAL DATE OF ADMISSION: 03/13/2019 REFERRING PHYSICIAN: Briana Manning NP REASON FOR CONSULTATION: Evaluation and management of cough and pneumonia. HISTORY: Ms. Fox is a 78-year-old woman with a history of tracheomalacia and reactive airways disease, previously seen at [facility] , and by doctors Jaime and Pedro. She was last seen by Dr. Vasquez almost a year ago for a chronic recurrent cough. States she was admitted 2 days ago after presenting with 1 week of cough. This cough was interfering with her sleep and was persistent throughout the day. She was started on ceftriaxone and azithromycin. She was also started on steroids, but her blood sugars went up to as high as 500, and they have been stopped. She reports that she is not really much better, with persistent cough throughout the day, with a feeling of chest congestion. Tessalon Perles have not particularly helped. PAST MEDICAL HISTORY: 1. COPD with bronchomalacia. 2. Diabetes. 3. GERD. 4. Hypertension. MEDICATIONS: 1. Insulin. 2. Xopenex. ALLERGIES: Include codeine, penicillin, sulfa, albuterol, and possibly Advair ( although the patient is on Symbicort). SOCIAL HISTORY: The patient is a former smoker. FAMILY HISTORY: Unremarkable. REVIEW OF SYSTEMS: A 10-point review of systems adds nothing to the History of Present Illness. PHYSICAL EXAMINATION: GENERAL: The patient is awake and alert. She has frequent coughing without sputum production. VITALS: Blood pressure is 151/80 with a heart rate of 82. She is afebrile. Oxygen saturations are 95% on 2 L. HEENT: Normocephalic and atraumatic. No icterus. NECK: No JVD. Trachea is midline. CHEST: She has some rales in both bases. CARDIAC: Regular rate and rhythm without murmur. ABDOMEN: Soft, nontender. Bowel sounds are present. EXTREMITIES: No clubbing, cyanosis, or edema. LABORATORY: Chemistry group was unremarkable. Blood sugar is 312. Hemoglobin is 11.0 and white blood count is 14.4. The patient has 11% band neutrophils. IMAGING: A chest x-ray from March 12 shows bibasilar infiltrates consistent with pneumonia. Images reviewed by me. ASSESSMENT: 1. Community acquired pneumonia. This occurs in the setting of underlying chronic obstructive pulmonary disease/tracheomalacia. The patient's main symptoms are cough, which is quite severe and debilitating. She has been unable to tolerate steroids due to hyperglycemia. She has tried Tessalon Perles and those have not been particularly helped. She has just mild hypoxemia. 2. Chronic obstructive pulmonary disease with acute exacerbation due to pneumonia. RECOMMENDATIONS: 1. Will start Advair. The patient can take Symbicort if she has her Symbicort available. 2. Trial of humidified oxygen, as she reports that her cough got better when she took a shower. 3. Will try nebulized lidocaine as well to see if that can help. /[id number]/MODL MTDD
[2019-03-14] MEDS: INSULIN GLARGINE 100 UNITS/ML UNIT SC SCH (18:37)
[2019-03-14] MEDS ORDERED: DILTIAZEM 25 MG/5 ML VIAL IVP ONE (19:00)
[2019-03-14] MEDS: DILTIAZEM HCL/D5W 125 ML IV SCH (19:31)
[2019-03-14] MEDS ORDERED: FUROSEMIDE 20 MG/2 ML VIAL IVP ONE (19:49)
--- NOTE | 2019-03-14 20:27 | HOSPPROG ---
Hospitalist Progress Note Assessment/Plan: Rapid response called. Patient found by nursing to have HR > 160 Patient very hypertensive, on 5L face mask. c/o vague CP,SOB - otherwise awake and conversive. Feels a little palpitations. Lungs - bibasilar rales CVS IRIR, tachy abd soft, NT ext - no C/C/E EKG - rapid afib, lateral ST depressions CXR - increased bilateral infiltrates patient given 20mg IV diltiazem follow by IV Dilt gtt A/P: New onset rapid afib - rate control on IV dilt overnight. NPO for possible cardioversion in am. SQ lovenox CHF - suspect mild pulmonary edema. IV lasix x 1. Check ECHO in am ST depressions - probably rate related - follow troponins CC time - 35 minutes Objective: Vital Signs Temp Pulse Resp BP Pulse Ox 36.9 C 163 H 20 175/113 H 92 03/14/19 18:44 03/14/19 18:44 03/14/19 18:44 03/14/19 18:44 03/14/19 18:44 Microbiology 03/13/19 22:12 Respiratory Panel (PCR) - Final Nasal, Sinus - Swab No Organism Detected By Pcr Laboratory Results 03/14/19 04:46 03/14/19 04:46 ICD10 Worksheet Patient Problems: Problems Problem Status Onset Chronic Disease Mgmt/Transitional Care Acute Respiratory distress Acute Acute exacerbation of chronic bronchitis Acute Hypoxia Acute Bronchitis Acute Thrush, oral Acute Hyperglycemia Acute Dehydration Acute Chronic obstructive pulmonary disease with acute exacerbation Acute Pneumonia Acute
[2019-03-14] MEDS ORDERED: FLUTICASONE/SALMETER 500/50MCG DISKUS IH SCH (21:00)
[2019-03-14] MEDS ORDERED: ENOXAPARIN 40 MG/0.4 ML SYR SC SCH (21:00)
[2019-03-14] MEDS: ENOXAPARIN 60 MG/0.6 ML SYR SC SCH (21:40)
[2019-03-15] MEDS: LEVALBUTEROL 1.25 MG/3 ML DEYVIAL IH SCH ×3 (05:34→16:03)
[2019-03-15] MEDS: DILTIAZEM HCL/D5W 125 ML IV SCH (05:48)
--- NOTE | 2019-03-15 08:13 | CPEKG ---
Test Reason : OPEN Blood Pressure : / mmHG Vent. Rate : 138 BPM Atrial Rate : 226 BPM P-R Int : 152 ms QRS Dur : 076 ms QT Int : 311 ms P-R-T Axes : 065 054 029 degrees QTc Int : [address] depression, probably rate related Confirmed by Gary Kowalski ([id number]) on 03/15/2019 8:13:01 AM Referred By: Carlos Manuel Quintanilla Confirmed By:Gary Kowalski
[2019-03-15 08:19] LABS: PLATELET COUNT 273 10^3/uL (150-400)
[2019-03-15] MEDS: guaiFENesin 600 MG TAB.ER PO SCH ×2 (08:50→20:43)
[2019-03-15] MEDS: IBUPROFEN 200 MG TAB PO PRN ×2 (08:50→20:43)
[2019-03-15] MEDS: ENOXAPARIN 60 MG/0.6 ML SYR SC SCH (08:56)
[2019-03-15] MEDS: INSULIN LISPRO 100 UNIT/ML SC SCH ×3 (09:22→18:45)
[2019-03-15] MEDS: AZITHROMYCIN IV 500 MG in NS 250 ML IV SCH (09:26)
--- NOTE | 2019-03-15 09:52 | HOSPPROG ---
Hospitalist Progress Note Assessment/Plan: 78 y/o w/hx of COPD and DM1 presents w/1 week of persistent cough. #AHRF 2/2 PNA w/acute COPD exac vs acute HF - O2 needs up to 4 LPM this am. Resp PCR neg. BCx neg. BNP 9K, CXR yest pers reviewed/interp, c/w pulmonary edema -cont ceftriaxone/azithro for possible CAP, send PCT -cont duo nebs, no steroids as pt without wheezing and bg's up to 500 with previous steroids -IV Lasix today -monitor I&O, daily weights -echo pending -wean O2 as able #Rapid A fib - new diagnosis, occurred last night, spontaneously converted back to NSR this am. She refused Lovenox this am. -check TSH, echo -d/c IV dilt, change to po dilt 30 mg BID for now, transition to dilt CD if tolerates -PARQ re: AC, pt wishes to defer anticoagulation for now, understands risk of stroke, but agrees if A fib recurs, would start AC -recommend outpt cardiac event monitor to look for recurrent a fib #Hyponatremia - improved with IVF's #DM1 -A1c 7.7%, elevated sugar 2/2 solumedrol -cont basal/bolus insulin #COPD - Quit smoking in 2017 after a 40 pack-year hx -Cont home inhalers including symbicort -nebs #Low TSH - nl T3,T4 (rechecked this am for new A fib eval, didn't realize had already been checked) Code: Full VTE ppx: Lovenox subq Dispo: cont inpt, ADD uncertain Subjective: Pt coughing quite a bit. Now in NSR. No fevers. No CP, a bit SOB. Appetite fair. Objective: Vital Signs Temp Pulse Resp BP Pulse Ox 36.6 C 94 18 114/72 90 L 03/15/19 08:00 03/15/19 08:00 03/15/19 08:00 03/15/19 08:00 03/15/19 08:00 Microbiology 03/13/19 22:12 Respiratory Panel (PCR) - Final Nasal, Sinus - Swab No Organism Detected By Pcr Laboratory Results 03/15/19 08:10 03/15/19 08:10 03/14/19 03/15/19 03/16/19 05:59 05:59 05:59 Intake Total 500 Balance 500 - Physical Exam Constitutional: no apparent distress Eyes: PERRL Ears, Nose, Mouth, Throat: moist mucous membranes Cardiovascular: regular rate and rhythym, no murmur, rub, or gallop Respiratory: no respiratory distress, inspiratory crackles, other (no wheezing) Gastrointestinal: normoactive bowel sounds, soft, non-tender abdomen Skin: warm Musculoskeletal: full muscle strength Neurologic: AAOx3 Psychiatric: interacting appropriately ICD10 Worksheet Patient Problems: Problems Problem Status Onset Chronic Disease Mgmt/Transitional Care Acute Chronic obstructive pulmonary disease with acute exacerbation Acute Pneumonia Acute Acute exacerbation of chronic bronchitis Acute Bronchitis Acute Dehydration Acute Hyperglycemia Acute Hypoxia Acute Respiratory distress Acute Thrush, oral Acute
[2019-03-15] MEDS ORDERED: APIXABAN 2.5 MG TAB PO SCH (10:00)
[2019-03-15] MEDS ORDERED: FUROSEMIDE 20 MG/2 ML VIAL IVP ONE (10:06)
[2019-03-15] MEDS ORDERED: ENOXAPARIN 40 MG/0.4 ML SYR SC SCH (10:15)
[2019-03-15] MEDS: BUDESONIDE/FORMOTEROL 160/4.5 60 PUFFS/MDI IH SCH ×2 (10:34→21:31)
[2019-03-15] MEDS: DILTIAZEM 30 MG TAB PO SCH ×2 (11:14→20:42)
[2019-03-15] MEDS: APIXABAN 2.5 MG TAB PO SCH ×2 (11:38→20:43)
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
--- NOTE | 2019-03-15 13:40 | ECHO ---
[email or web address] [address] [address] Main: [phone] Echocardiography Examination Transthoracic Name: ALEXANDR GLOVER MR#: [id number] Study Date: 03/15/2019 Study Time: 08:22 AM Date of : 1940 Age: 78 year(s) Height: 162.6 cm (64 in.) Weight: 53.07 kg (117 lb.) BSA: 1.56 m2 Gender: Female Examination: Echo Contrast: Image Quality: Rhythm: Atrial fibrillation Heart Rate: 55 bpm BP: 114 mmHg/72 mmHg Indication: Pneumonia, New onset of Atrial Fibrillation Procedure Staff Referring Physician: Edge Finisher: Jose Anderson RDCS Reading Physician: Jourdan Connolly MD Requesting Provider: Ordering Physician: Nikki Dickey Indication: Pneumonia, New onset of Atrial Fibrillation Measurements Chambers AV/MV Label Value Normal Value Label Value Normal Value LVOT Vmax 1.05 m/s (0.7m/s - 1.1m/s) AV PGmax 6 mmHg LVOTd 1.9 cm (1.8cm - 2cm) AV PGmean 3 mmHg LVOT VTI 22.7 cm (18cm - 22cm) AV Vmax 1.25 m/s LVDd, 2D 3.4 cm (3.9cm - 5.3cm) CHOCO (Vmax) 2.4 cm2 LVDs, 2D 2 cm (2.1cm - 4cm) CHOCO (VTI) 2.4 cm2 IVSd, 2D 1 cm (0.6cm - 1.1cm) MV E Vmax 1.38 m/s LVPWd, 2D 1 cm MV A Vmax 0.49 m/s LVEF, 2D 71 % (54% - 74%) MV E/A 2.82 LVOT PGmean 2 mmHg MV E/E' lateral 9.9 LVOT Vmean 0.71 m/s MV E/E' septal 13.7 (0.45 - 1.25) RVDd, 2D 2.4 cm (1.9cm - 3.8cm) MV E' septal 0.1 m/s LA Volume, BP 52 ml (22ml - 52ml) MV E' lateral 0.14 m/s LAESV index, BP 33.3 ml/m2 MV E/E' mean 11.5 Additional Vessels MV E' mean 0.12 m/s Label Value Normal Value TV/PV AoRoot, MM 3 cm (2.2cm - 3.7cm) Label Value Normal Value RA Pressure 5 mmHg RVSP 39 mmHg TR Pmax 34 mmHg Patient: ALEXANDR GLOVER Study Date: 03/15/2019 Page 1 of 3 08:22 AM TR Vmax 2.92 m/s MA End aragon Raul 1.63 cm/s PV PGmax 3 mmHg PV Vmax, Caliper 0.86 m/s (0.6m/s - 0.9m/s) Conclusions (1) Left ventricular systolic ejection fraction was normal (70%) - normal wall motion - no LVH (2) Normal RV size and function (3) Mild LA dilation with normal RA dimensions (4) Moderate MAC with trivial MR (5) Trileaflet aortic valve with mild sclerosis and no insufficiency (6) Mild TR - RVSP was 39 mm Hg (7) Mild PI (8) Normal aortic dimensions (9) No pericardial effusion (10) In comparison to prior echocardiography from Jul 2017, LAE is not as pronounced with today's study. Similar findings were otherwise unchanged. Findings Left Ventricle: Left ventricle is normal in size. Normal global systolic left ventricular function. The EF is visually estimated to be 75 %. EF range is estimated at 70 % - 75 %. The LV wall thickness is at the upper limits of normal. There are no regional wall motion abnormalities. Right Ventricle: Normal size right ventricle. Right ventricular systolic function is normal. Left Atrium: The left atrium is mildly dilated. Right Atrium: The right atrium is normal in size. Mitral Valve: Trivial mitral regurgitation. There is moderate mitral annular calcification. Aortic Valve: There is mild calcification of the NCC of the aortic valve.. No aortic valve regurgitation. The aortic valve is trileaflet. Tricuspid Valve: Tricuspid valve leaflets are structurally normal. Mild tricuspid regurgitation. Right Ventricular systolic pressure is measured at 39 mmHg. Pulmonic Valve: Pulmonic leaflets are structurally normal. Mild pulmonic valve regurgitation is present. Aorta: The aortic root size in M-mode measures 3.0 cm. Aorta Measurements AoRoot, MM is 3.0 cm. Pericardium: No pericardial effusion. Exam Details Procedure Ordered: Echo Patient: ALEXANDR GLOVER Study Date: 03/15/2019 Page 2 of 3 08:22 AM (No Signature Object) Patient: ALEXANDR GLOVER Study Date: 03/15/2019 Page 3 of 3 08:22 AM [id number]
[2019-03-15] MEDS ORDERED: ALBUTEROL 60 PUFFS/8 GM MDI IH PRN ×2 (14:03→16:00)
[2019-03-15] MEDS ORDERED: DILTIAZEM 30 MG TAB PO SCH (21:00)
[2019-03-15] MEDS: INSULIN GLARGINE 100 UNITS/ML UNIT SC SCH (21:12)
[2019-03-15] MEDS: ALBUTEROL 60 PUFFS/8 GM MDI IH SCH (21:30)
[2019-03-16] MEDS: LIDOCAINE 4% 5 ML AMP IH PRN ×2 (02:41→06:24)
[2019-03-16] MEDS: INSULIN LISPRO 100 UNIT/ML SC SCH ×3 (08:08→18:01)
[2019-03-16] MEDS: guaiFENesin 600 MG TAB.ER PO SCH ×2 (08:08→20:36)
[2019-03-16] MEDS: APIXABAN 2.5 MG TAB PO SCH (08:08)
[2019-03-16] MEDS: DILTIAZEM 30 MG TAB PO SCH ×2 (08:08→20:37)
[2019-03-16] MEDS: BUDESONIDE/FORMOTEROL 160/4.5 60 PUFFS/MDI IH SCH ×2 (09:08→20:47)
[2019-03-16] MEDS: ALBUTEROL 60 PUFFS/8 GM MDI IH SCH ×2 (09:21→22:10)
[2019-03-16] MEDS: AZITHROMYCIN IV 500 MG in NS 250 ML IV SCH (09:33)
--- NOTE | 2019-03-16 10:48 | PDCARPN ---
Cardiology Progress Note Chief Complaint: PAD/DCHF Assessment/Plan: Assessment: 78F PMH DM, COPD, p/w COPD exacerbation with superimposed pna. Developed AF RVR that has now converted to SR. Echo from 03/14/19 shows LVEF 70, mild TR, RVSP 39, mild [place], ao sclerosis without AR/. Plan: #. PAF: now in SR we reviewed possibility of stroke even after a few hours of AF [id number] of at least 3 she declines starting Eliquis due to concern that she may have ADR to it she does agree to ASA will have her resume ASA today we added low dose PO Dilt IR yesterday plan for outpatient follow up in 2 weeks with [facility] #. DCHF: as evidenced by ground glass opacities and trace pleural effusion on CXR, dyspnea, hypoxia, NTpBNP 9340 Lasix prn #. COPD/pna: per hospital med add [facility] will sign off. Pt may follow up in 2 weeks with [facility]. 03/16/19 10:41 Subjective: Coughing is still severe but nonproductive. No f/c, palps, presyncope/syncope. Objective: Vital Signs (8 Hrs) Temp Pulse Resp BP Pulse Ox 03/16/19 09:08 88 18 91 L 03/16/19 07:06 98.5 F 81 10 L 163/80 H 92 03/16/19 06:24 77 12 92 03/16/19 04:00 98.9 F 80 20 105/78 94 Intake/Output (24 Hrs) 03/15/19 03/16/19 03/17/19 05:59 05:59 05:59 Intake Total 500 1557 Output Total 1500 Balance 500 57 Intake: Oral (ml) 500 1250 IV Infused (ml) 307 Azithromycin IV 500 mg In 255 Ns 250 ml @ 255 mls/hr IV DAILY STEPHEN Rx#: [id number] cefTRIAXone 1 GM/DEXTROSE 52 50 ml @ 100 mls/hr IV DAILY STEPHEN Rx#:[id number] Output: Urine (ml) 1500 Toilet 1500 Other: Weight 55.1 kg Number of Voids Incontinence 1 Toilet 1 1 Number of Stools Toilet 1 Result Diagrams: 03/15/19 08:10 03/16/19 03:50 Cardiac Labs: Cardiac Lab Results (72 Hrs) 03/15/19 03/15/19 03/14/19 08:10 00:30 19:24 Troponin I < 0.012 < 0.012 < 0.012 Telemetry: reviewed SR today - Physical Exam Constitutional: WDWN, no apparent distress Eyes: PERRL, anicteric sclera Cardiovascular: regular rate and rhythm, No systolic murmur Respiratory: reduced air movement, bronchial breath sounds Skin: no rashes, no edema Neurologic: AAOx3 Psychiatric: cooperative, interactive ICD10 Worksheet Patient Problems: Problems Problem Status Onset Chronic Disease Mgmt/Transitional Care Acute Chronic obstructive pulmonary disease with acute exacerbation Acute Pneumonia Acute Acute exacerbation of chronic bronchitis Acute Bronchitis Acute Dehydration Acute Hyperglycemia Acute Hypoxia Acute Respiratory distress Acute Thrush, oral Acute
[2019-03-16] MEDS: ASPIRIN 81 MG CHEWABLE TAB PO SCH (11:42)
--- NOTE | 2019-03-16 11:51 | ASMTCMCOM ---
CM Note CM Note Notes: Patient making progress but still requiring diuresis. She is re-starting her home ASA, refuses Eliquis. She continues to be independent in her ADLs while here. Current CM Discharge plan: home independent Date Signed: 03/16/2019 11:50 AM Electronically Signed By:Sneha Mckeon RN
[2019-03-16] MEDS ORDERED: FUROSEMIDE 20 MG/2 ML VIAL IVP ONE ×3 (12:37→18:01)
[2019-03-16] MEDS ORDERED: POLYETHYLENE GLYCOL 3350 17 GM PKT PO PRN (12:38)
[2019-03-16] MEDS ORDERED: MAGNESIUM HYDROXIDE 30 ML UDCUP PO PRN (12:38)
[2019-03-16] MEDS ORDERED: LACTULOSE 20 GM/30 ML UDCUP PO PRN (12:38)
[2019-03-16] MEDS ORDERED: BISACODYL 10 MG SUPP PR PRN (12:38)
[2019-03-16] MEDS: GUAIFENESIN/DM 10 ML UDCUP PO PRN ×2 (13:48→20:37)
[2019-03-16] MEDS: CEPACOL LOZENGE PO PRN ×2 (13:48→20:37)
--- NOTE | 2019-03-16 14:27 | HOSPPROG ---
Hospitalist Progress Note Assessment/Plan: 78 y/o w/hx of COPD and DM1 presents w/1 week of persistent cough. #AHRF 2/2 PNA w/acute COPD exac vs acute HF - O2 needs up to 4 LPM this am. Resp PCR neg. BCx neg. BNP 9K, CXR yest pers reviewed/interp, c/w pulmonary edema -cont ceftriaxone, discussed with pharmacy and will stop azithro after 3 doses X500mg. -cont duo nebs, no steroids as pt without wheezing and bg's up to 500 with previous steroids -redose lasix today. -monitor I&O, daily weights -I reviewed the TTE and no decompensated CHF. -wean O2 as able #Rapid A fib - new diagnosis, occurred last night, spontaneously converted back to NSR this am. She refused Lovenox this am. -check TSH, echo -d/c IV dilt, change to po dilt 30 mg BID for now, transition to dilt CD if tolerates -PARQ re: AC, pt wishes to defer anticoagulation for now, understands risk of stroke, but agrees if A fib recurs, would start AC -recommend outpt cardiac event monitor to look for recurrent a fib #Hyponatremia - improved with IVF's #DM1 -A1c 7.7%, elevated sugar 2/2 solumedrol -cont basal/bolus insulin #COPD - Quit smoking in 2017 after a 40 pack-year hx -Cont home inhalers including symbicort -nebs #Low TSH - nl T3,T4 Code: Full VTE ppx: Lovenox subq Dispo: cont inpt, dispo pending. I reviewed the patients chart, imaging, and labs as they are new to me. Subjective: coughing a lot, still short of breath. unsure if she urinated a lot with lasix. Objective: Vital Signs Temp Pulse Resp BP Pulse Ox 37.2 C 92 12 145/71 H 92 03/16/19 10:58 03/16/19 10:58 03/16/19 10:58 03/16/19 10:58 03/16/19 10:58 Laboratory Results 03/15/19 08:10 03/16/19 03:50 03/15/19 03/16/19 05 05:59 05:59 05:59 Intake Total 500 1557 252 Output Total 1500 Balance 500 57 252 - Time Spent With Patient Time Spent with Patient: greater than 35 minutes Time Spent with Patient: Greater than 35 minutes spent on this patients care, greater than 50% of time spent counseling, educating, and coordinating care regarding the above mentioned plan. - Physical Exam Constitutional: no apparent distress, appears nourished, not in pain Eyes: PERRL, anicteric sclera, EOMI Ears, Nose, Mouth, Throat: moist mucous membranes, hearing normal, ears appear normal, no oral mucosal ulcers Cardiovascular: regular rate and rhythym, no murmur, rub, or gallop Respiratory: no respiratory distress, no rales or rhonchi, clear to auscultation Gastrointestinal: normoactive bowel sounds, soft, non-tender abdomen, no palpable masses Genitourinary: no bladder fullness, no bladder tenderness, no renal bruits Skin: no rashes or abrasions, no fluctuance, no induration Musculoskeletal: full muscle strength, no muscle tenderness, normal joint ROM Neurologic: AAOx3, sensation intact bilaterally Psychiatric: interacting appropriately, not anxious, not encephalopathic, thought process linear Lymph, Heme, Immunologic: no cervical LAD, no supraclavicular LAD ICD10 Worksheet Patient Problems: Problems Problem Status Onset Chronic Disease Mgmt/Transitional Care Acute Chronic obstructive pulmonary disease with acute exacerbation Acute Pneumonia Acute Acute exacerbation of chronic bronchitis Acute Bronchitis Acute Dehydration Acute Hyperglycemia Acute Hypoxia Acute Respiratory distress Acute Thrush, oral Acute
[2019-03-16] MEDS: ACETYLCYSTEINE 10% IH/PO 4 ML VIAL IH SCH ×3 (14:46→23:36)
[2019-03-16] MEDS ORDERED: DILTIAZEM 25 MG/5 ML VIAL IVP ONE (16:15)
[2019-03-16] MEDS ORDERED: DILTIAZEM HCL/D5W 125 ML IV SCH (17:30)
[2019-03-16] MEDS ORDERED: AMIODARONE HCL 300 MG in D5W 100 ML IV ONE (18:01)
[2019-03-16] MEDS ORDERED: AMIODARONE HCL 200 ML IV ONE (18:01)
--- NOTE | 2019-03-16 18:06 | PDINTPN ---
Fish Warden Progress Note Assessment/Plan: Assessment: Community-acquired pneumonia: Occurs in the setting of COPD likely due to some tracheomalacia. Her main symptom is cough, and her chest x-ray showed bibasilar infiltrates. Treated with ceftriaxone and azithromycin, currently on ceftriaxone alone. Paroxysmal atrial fibrillation: The patient developed atrial fibrillation yesterday with a rapid ventricular response. She was transferred to the telemetry unit improved with Cardizem, which was changed to p.o.. However, this afternoon she developed recurrent PAF with RVR, and marked increase in oxygen needs and dyspnea. Her chest x-ray shows new onset of pulmonary edema. Her heart rate continues to be fast at 120 beats per minute despite Cardizem at 10 mg/hour Congestive heart failure: Suggested by the elevated BNP and new onset of interstitial edema in the setting of atrial fibrillation with rapid ventricular response. Plan: Urgent transfer to the SCU Continue Cardizem drip Start Amiodarone bolus and drip IV Lasix EKG, troponin Called and discussed with Dr. Mohr, who concurs with the above approach. Cardiology will continue to follow the patient 35 min critical care time after being called to see the patient urgently due to hypoxemia, dyspnea, and atrial fibrillation with rapid ventricular response refractory to IV Cardizem. 03/16/19 18:09 Subjective: The pain she reports increased dyspnea. Her cough is still quite severe, but she has had some breaks from it on and off for the last day or so Objective: Vital Signs Temp Pulse Resp BP Pulse Ox 37.7 C 137 H 15 132/75 H 92 03/16/19 17:05 03/16/19 17:25 03/16/19 17:25 03/16/19 17:25 03/16/19 17:25 Laboratory Results 03/15/19 08:10 03/16/19 03:50 03/15/19 03/16/19 03/17/19 05:59 05:59 05:59 Intake Total 500 1557 1302 Output Total 1500 1700 Balance 500 57 -398 Physical Exam - Physical Exam General Appearance: alert, no apparent distress EENT: pharynx normal Neck: normal inspection Respiratory: crackles Cardiac/Chest: tachycardia, irregularly irregular Abdomen: normal bowel sounds, non-tender Skin: normal color, warm/dry Extremities: normal inspection Neuro/Psych: alert, normal mood/affect, oriented x 3 ICD10 Worksheet Patient Problems: Problems Problem Status Onset Chronic Disease Mgmt/Transitional Care Acute Chronic obstructive pulmonary disease with acute exacerbation Acute Pneumonia Acute Acute exacerbation of chronic bronchitis Acute Bronchitis Acute Dehydration Acute Hyperglycemia Acute Hypoxia Acute Respiratory distress Acute Thrush, oral Acute
[2019-03-16] MEDS: BENZONATATE 100 MG CAP PO PRN (20:30)
[2019-03-16] MEDS: IBUPROFEN 200 MG TAB PO PRN (20:36)
[2019-03-16] MEDS: SENNOSIDES/DOCUSATE SODIUM TAB PO SCH (22:12)
[2019-03-16] MEDS: INSULIN GLARGINE 100 UNITS/ML UNIT SC SCH (22:20)
[2019-03-16] MEDS: ALBUTEROL 3 ML DEYVIAL IH SCH (23:36)
[2019-03-17] MEDS: CEPACOL LOZENGE PO PRN (00:36)
[2019-03-17] MEDS: GUAIFENESIN/DM 10 ML UDCUP PO PRN ×3 (00:36→14:58)
[2019-03-17] MEDS ORDERED: AMIODARONE HCL 540 MG in D5W 300 ML IV ONE (01:00)
[2019-03-17] MEDS: ACETYLCYSTEINE 10% IH/PO 4 ML VIAL IH SCH ×5 (05:10→23:17)
[2019-03-17] MEDS: ALBUTEROL 3 ML DEYVIAL IH SCH ×5 (05:10→23:17)
[2019-03-17 05:48] LABS: PLATELET COUNT 306 10^3/uL (150-400)
[2019-03-17] MEDS: INSULIN LISPRO 100 UNIT/ML SC SCH ×3 (07:27→18:38)
[2019-03-17] MEDS: ASPIRIN 81 MG CHEWABLE TAB PO SCH (07:28)
[2019-03-17] MEDS: guaiFENesin 600 MG TAB.ER PO SCH ×2 (07:28→20:55)
[2019-03-17] MEDS: DILTIAZEM 30 MG TAB PO SCH (07:28)
[2019-03-17] MEDS: SENNOSIDES/DOCUSATE SODIUM TAB PO SCH ×2 (07:29→20:55)
[2019-03-17] MEDS: BENZONATATE 100 MG CAP PO PRN ×2 (07:32→21:01)
--- NOTE | 2019-03-17 07:33 | CPEKG ---
Test Reason : OPEN Blood Pressure : / mmHG Vent. Rate : 132 BPM Atrial Rate : 135 BPM P-R Int : 244 ms QRS Dur : 084 ms QT Int : 338 ms P-R-T Axes : 101 077 -51 degrees QTc Int : 501 ms Atrial flutter with predominant 2:1 AV block Repolarization abnormality, prob rate related Prolonged QT interval Confirmed by Gary Kowalski ([id number]) on 03/17/2019 7:33:07 AM Referred By: Carlos Manuel Quintanilla Confirmed By:Gary Kowalski
[2019-03-17] MEDS: ALBUTEROL 60 PUFFS/8 GM MDI IH SCH (09:47)
--- NOTE | 2019-03-17 10:02 | SOAPPROG ---
SOAP Progress Note Assessment/Plan: Assessment: 78 y/o woman with PMH of asthma, COPD and DM who is hospitalized with severe bilateral pneumonia, PAF and mild diastolic CHF. On IV amiodarone gtt she self converted to NSR last night. She is still short of breath at rest and coughing green sputum. PLAN: 1)stop IV Diltiazem gtt (done) 2)continue IV Amiodarone gtt 0.5mg/min for 24-48hrs more until pneumonia more treated. 3)Lasix 40mg IV qday 4)KCL 20meq PO BID 5)start Diltiazem CD 120mg PO qam. 6)probably stay in ICU for next 24hrs until O2 requirements less and maintains NSR then out of ICU tomorrow. Cardiology team will follow with you. 03/17/19 09:58 Subjective: she does not feel well. Constant cough with green sputum. Short of breath at rest. Denies CP, palpitations, PND or near syncope. Objective: Vital Signs Temp Pulse Resp BP Pulse Ox 36.8 C 74 20 133/70 H 90 L 03/17/19 07:45 03/17/19 07:45 03/17/19 07:45 03/17/19 07:45 03/17/19 07:45 Laboratory Results 03/17/19 05:39 03/17/19 05:39 03/16/19 03/17/19 03/18/19 05:59 05:59 05:59 Intake Total 1557 1752 Output Total 1500 3100 Balance 57 -1348 Physical Exam - Physical Exam General Appearance: alert EENT: normal ENT inspection Neck: full range of motion Respiratory: rales (bilaterally.) Cardiac/Chest: regular rate, rhythm, No gallop, No systolic murmur Peripheral Pulses: 2+: carotid (R), carotid (L), femoral (R), femoral (L), dorsalis-pedis (R), dorsalis-pedis (L) Abdomen: non-tender, No guarding, No rebound, No ascites Skin: warm/dry Extremities: No pedal edema Neuro/Psych: alert ICD10 Worksheet Patient Problems: Problems Problem Status Onset Chronic Disease Mgmt/Transitional Care Acute Chronic obstructive pulmonary disease with acute exacerbation Acute Pneumonia Acute Acute exacerbation of chronic bronchitis Acute Bronchitis Acute Dehydration Acute Hyperglycemia Acute Hypoxia Acute Respiratory distress Acute Thrush, oral Acute
[2019-03-17] MEDS ORDERED: POTASSIUM CL 20 MEQ TAB PO SCH (10:15)
[2019-03-17] MEDS ORDERED: DILTIAZEM CD 120 MG CAP PO SCH (10:15)
[2019-03-17] MEDS ORDERED: FUROSEMIDE 40 MG/4 ML VIAL IVP SCH (10:15)
[2019-03-17] MEDS: BUDESONIDE/FORMOTEROL 160/4.5 60 PUFFS/MDI IH SCH ×2 (11:25→23:18)
--- NOTE | 2019-03-17 12:19 | HOSPPROG ---
Hospitalist Progress Note Assessment/Plan: 78 y/o w/hx of COPD and DM1 presents w/1 week of persistent cough. #AHRF 2/2 bacterial PNA compounded with CHF exacerbation and COPD- CXR yesterday with pulmonary edema, repeat this am, mildly better but still with pulmonary edema, oxygen req to 5-6 liters and crackles on exam. BNP up as well suggestive of CHF. Discussed with cardiology, plan to cont IV lasix today. -cont ceftriaxone, discussed with pharmacy and will stop azithro after 3 doses X500mg. -cont duo nebs, no steroids as pt without wheezing and bg's up to 500 with previous steroids -IV lasix 40 BID today -monitor I&O, daily weights -wean O2 as able #Rapid A fib - happened earlier in admission, resolved and she was placed on po dilt, then again yesterday went back in to Afib with RVR and rates in the 160s. Tried dilt gtt but was not effective and patient ended up on amio gtt. -start dilt poo 120 po in am. -cont amio gtt for now -Need to discuss with patient AC. she refused eliquis, agreed to asa, but may be more amenable now. #Hyponatremia -sodium down to 127 overnight. Urine sodium borderline but with elevated osm. Repeat Na later this afternoon. #DM1 -A1c 7.7%, elevated sugar 2/2 solumedrol -cont basal/bolus insulin #COPD - Quit smoking in 2017 after a 40 pack-year hx -Cont home inhalers including symbicort -nebs #Low TSH - nl T3,T4 Code: Full VTE ppx: Lovenox subq Dispo: cont inpt, dispo pending. I spent 40 minutes of critical care time on the management of this patient. Subjective: patient still short of breath, coughing a lot. no chest pain. Objective: Vital Signs Temp Pulse Resp BP Pulse Ox 36.8 C 73 18 144/72 H 89 L 03/17/19 11:22 03/17/19 11:22 03/17/19 11:22 03/17/19 11:22 03/17/19 11:22 Laboratory Results 03/17/19 05:39 03/17/19 05:39 03/16/19 03/17/19 03/18/19 05:59 05:59 05:59 Intake Total 1557 1752 Output Total 1500 3100 Balance 57 -1348 - Physical Exam Constitutional: no apparent distress, appears nourished, not in pain Eyes: PERRL, anicteric sclera, EOMI Ears, Nose, Mouth, Throat: moist mucous membranes, hearing normal, ears appear normal, no oral mucosal ulcers Cardiovascular: irregularly irregular Respiratory: reduced air movement, inspiratory crackles Gastrointestinal: normoactive bowel sounds, soft, non-tender abdomen, no palpable masses Genitourinary: no bladder fullness, no bladder tenderness, no renal bruits Skin: no rashes or abrasions, no fluctuance, no induration Musculoskeletal: full muscle strength, no muscle tenderness, normal joint ROM Neurologic: AAOx3, sensation intact bilaterally Psychiatric: interacting appropriately, not anxious, not encephalopathic, thought process linear Lymph, Heme, Immunologic: no cervical LAD, no supraclavicular LAD ICD10 Worksheet Patient Problems: Problems Problem Status Onset Chronic Disease Mgmt/Transitional Care Acute Chronic obstructive pulmonary disease with acute exacerbation Acute Pneumonia Acute Acute exacerbation of chronic bronchitis Acute Bronchitis Acute Dehydration Acute Hyperglycemia Acute Hypoxia Acute Respiratory distress Acute Thrush, oral Acute
[2019-03-17] MEDS: DILTIAZEM CD 120 MG CAP PO SCH (14:48)
[2019-03-17] MEDS: FUROSEMIDE 40 MG/4 ML VIAL IVP SCH (14:48)
[2019-03-17] MEDS: POTASSIUM CL 20 MEQ TAB PO SCH ×2 (14:48→20:55)
--- NOTE | 2019-03-17 14:52 | PDINTPN ---
[facility] Progress Note Assessment/Plan: Assessment: Community-acquired pneumonia: Occurs in the setting of COPD likely due to some tracheomalacia. Her main symptom is cough, and her chest x-ray showed bibasilar infiltrates. Treated with ceftriaxone and azithromycin, currently on ceftriaxone alone. Paroxysmal atrial fibrillation: The patient developed atrial fibrillation 03/15 with a rapid ventricular response. She was transferred to the telemetry unit improved with Cardizem, which was changed to p.o.. However, 03/16 afternoon she developed recurrent PAF with RVR, and marked increase in oxygen needs and dyspnea. Her chest x-ray shows new onset of pulmonary edema. Her heart rate fast at 120 beats per minute despite Cardizem at 10 mg/hour Congestive heart failure: Suggested by the elevated BNP and new onset of interstitial edema in the setting of atrial fibrillation with rapid ventricular response. Chest x-ray similar to yesterday, but BNP is down. Plan: Continue amiodarone Continue Cardizem p.o. Repeat IV Lasix Continue ceftriaxone Cardiology will continue to follow the patient Keep in SDU today. 03/17/19 14:51 Subjective: Feels a bit better, but still bothered by cough. Has difficulty taking a full breath. Objective: Vital Signs Temp Pulse Resp BP Pulse Ox 36.8 C 73 18 144/72 H 89 L 03/17/19 11:22 03/17/19 11:22 03/17/19 11:22 03/17/19 11:22 03/17/19 11:22 Laboratory Results 03/17/19 05:39 03/17/19 05:39 03/16/19 03/17/19 03/18/19 05:59 05:59 05:59 Intake Total 1557 1752 Output Total 1500 3100 Balance 57 -1348 Chest x-ray: Persistent bilateral infiltrates. Images reviewed by me. Laboratory Tests 03/17/19 05:39 NT-Pro-B Natriuret Pep 5890 H Physical Exam - Physical Exam General Appearance: alert, no apparent distress EENT: normal ENT inspection Neck: normal inspection Respiratory: crackles Cardiac/Chest: regular rate, rhythm, No edema Abdomen: normal bowel sounds, non-tender Skin: normal color, warm/dry Extremities: non-tender, normal inspection Neuro/Psych: alert, normal mood/affect, oriented x 3, No motor weakness ICD10 Worksheet Patient Problems: Problems Problem Status Onset Chronic Disease Mgmt/Transitional Care Acute Chronic obstructive pulmonary disease with acute exacerbation Acute Pneumonia Acute Acute exacerbation of chronic bronchitis Acute Bronchitis Acute Dehydration Acute Hyperglycemia Acute Hypoxia Acute Respiratory distress Acute Thrush, oral Acute
[2019-03-17] MEDS: INSULIN GLARGINE 100 UNITS/ML UNIT SC SCH (20:55)
[2019-03-17] MEDS: AMIODARONE HCL 200 ML IV SCH (20:55)
[2019-03-18] MEDS: ACETYLCYSTEINE 10% IH/PO 4 ML VIAL IH SCH ×4 (04:50→21:27)
[2019-03-18] MEDS: ALBUTEROL 3 ML DEYVIAL IH SCH ×4 (04:50→21:26)
[2019-03-18] MEDS: IBUPROFEN 200 MG TAB PO PRN (06:32)
[2019-03-18] MEDS: DILTIAZEM CD 120 MG CAP PO SCH (07:41)
[2019-03-18] MEDS: guaiFENesin 600 MG TAB.ER PO SCH ×2 (07:41→22:05)
[2019-03-18] MEDS: POTASSIUM CL 20 MEQ TAB PO SCH ×2 (07:41→22:05)
[2019-03-18] MEDS: ASPIRIN 81 MG CHEWABLE TAB PO SCH (07:42)
[2019-03-18] MEDS: SENNOSIDES/DOCUSATE SODIUM TAB PO SCH ×2 (07:42→22:09)
[2019-03-18] MEDS: FUROSEMIDE 40 MG/4 ML VIAL IVP SCH (07:42)
[2019-03-18] MEDS: INSULIN LISPRO 100 UNIT/ML SC SCH ×3 (07:42→17:29)
[2019-03-18] MEDS: AMIODARONE HCL 200 ML IV SCH (07:43)
[2019-03-18] MEDS ORDERED: ALTEPLASE 2 MG VIAL IVP PRN (08:04)
--- NOTE | 2019-03-18 08:26 | SOAPPROG ---
SOAP Progress Note Assessment/Plan: Assessment: 78 y/o woman with PMH of asthma, COPD and DM who is hospitalized with severe bilateral pneumonia, PAF and mild diastolic CHF. On IV amiodarone gtt she self converted to NSR two nights ago. She has had a good last 24hrs staying in NSR with lots of weight loss. She appears euvolemic. REC: 1)continue IV amiodarone gtt at 0.5mg/min for 24hrs more than probably discontinue completely. 2)stop IV lasix 3)start Lasix 20mg PO qam for 2-3 days but not permanent med probably 4)okay from cardiology standpoint to transfer to PCU this AM 5)probably needs PICC line. 6)labs today (CMP) to make sure hyponatremia improving. 03/18/19 08:23 Subjective: she feels better. Cough and shortness of breath less. Denies CP, palpitations or syncope. Objective: Vital Signs Temp Pulse Resp BP Pulse Ox 37.0 C 71 17 136/62 H 97 03/18/19 07:23 03/18/19 07:23 03/18/19 07:23 03/18/19 07:23 03/18/19 07:23 Laboratory Results 03/17/19 05:39 03/17/19 18:10 03/17/19 03/18/19 03/19/19 05:59 05:59 05:59 Intake Total 1752 1505 Output Total 3100 1100 Balance -1348 405 Physical Exam - Physical Exam General Appearance: alert EENT: normal ENT inspection Neck: non-tender Respiratory: rales (but better than yesterday.) Cardiac/Chest: regular rate, rhythm, No gallop, No JVD, No systolic murmur Peripheral Pulses: 2+: carotid (R), carotid (L), femoral (R), femoral (L), dorsalis-pedis (R), dorsalis-pedis (L) Abdomen: No non-tender Skin: warm/dry Extremities: No pedal edema Neuro/Psych: alert ICD10 Worksheet Patient Problems: Problems Problem Status Onset Chronic Disease Mgmt/Transitional Care Acute Chronic obstructive pulmonary disease with acute exacerbation Acute Pneumonia Acute Acute exacerbation of chronic bronchitis Acute Bronchitis Acute Dehydration Acute Hyperglycemia Acute Hypoxia Acute Respiratory distress Acute Thrush, oral Acute
--- NOTE | 2019-03-18 11:35 | HOSPPROG ---
Hospitalist Progress Note Assessment/Plan: 78 y/o w/hx of COPD and DM1 presents w/1 week of persistent cough. #AHRF 2/2 bacterial PNA compounded with CHF exacerbation and COPD- Exam sounds better today -cont ceftriaxone for a few more days given decompensation, already completed azithro -cont duo nebs, no steroids as pt without wheezing and bg's up to 500 with previous steroids -Transition to PO lasix -monitor I&O, daily weights -wean O2 as able #Rapid A fib - happened earlier in admission, resolved and she was placed on po dilt, then again yesterday went back in to Afib with RVR and rates in the 160s. Tried dilt gtt but was not effective and patient ended up on amio gtt. -dilt po 120 po in am. -cont amio gtt for one more day per cardiology -On asa as she refused ac. -ECG obtained this am,shows sinus rhythm per my review. #Hyponatremia -sodium down to 127 but back up to 129 last night. unable to redraw today due to poor IV access. -repeat sodium after PICC #DM1 -A1c 7.7%, elevated sugar 2/2 solumedrol -cont basal/bolus insulin #COPD - Quit smoking in 2017 after a 40 pack-year hx -Cont home inhalers including symbicort -nebs #Low TSH - nl T3,T4 Code: Full VTE ppx: Lovenox subq Dispo: cont inpt, dispo pending. Transfer to PCU today after PICC Subjective: feels better, coughing less. arms sore from getting stuck. Objective: Vital Signs Temp Pulse Resp BP Pulse Ox 37.0 C 71 17 136/62 H 97 03/18/19 07:23 03/18/19 07:23 03/18/19 07:23 03/18/19 07:23 03/18/19 07:23 Laboratory Results 03/17/19 05:39 03/17/19 18:10 03/17/19 03/18/19 03/19/19 05:59 05:59 05:59 Intake Total 1752 1505 Output Total 3100 1100 Balance -1348 405 - Physical Exam Constitutional: no apparent distress, appears nourished, not in pain Eyes: PERRL, anicteric sclera, EOMI Ears, Nose, Mouth, Throat: moist mucous membranes, hearing normal, ears appear normal, no oral mucosal ulcers Cardiovascular: regular rate and rhythym, no murmur, rub, or gallop Respiratory: no respiratory distress, reduced air movement Gastrointestinal: normoactive bowel sounds, soft, non-tender abdomen, no palpable masses Genitourinary: no bladder fullness, no bladder tenderness, no renal bruits Skin: no rashes or abrasions, no fluctuance, no induration Musculoskeletal: full muscle strength, no muscle tenderness, normal joint ROM Neurologic: AAOx3, sensation intact bilaterally Psychiatric: interacting appropriately, not anxious, not encephalopathic, thought process linear Lymph, Heme, Immunologic: no cervical LAD, no supraclavicular LAD ICD10 Worksheet Patient Problems: Problems Problem Status Onset Chronic Disease Mgmt/Transitional Care Acute Chronic obstructive pulmonary disease with acute exacerbation Acute Pneumonia Acute Acute exacerbation of chronic bronchitis Acute Bronchitis Acute Dehydration Acute Hyperglycemia Acute Hypoxia Acute Respiratory distress Acute Thrush, oral Acute
[2019-03-18] MEDS: FUROSEMIDE 20 MG TAB PO SCH (11:50)
--- NOTE | 2019-03-18 11:53 | PDINTPN ---
[facility] Progress Note Assessment/Plan: Assessment: Community-acquired pneumonia: Occurs in the setting of COPD likely due to some tracheomalacia. Her main symptom is cough, and her chest x-ray showed bibasilar infiltrates. Treated with ceftriaxone and azithromycin, currently on ceftriaxone alone. Paroxysmal atrial fibrillation: The patient developed atrial fibrillation 03/15 with a rapid ventricular response. She was transferred to the telemetry unit improved with Cardizem, which was changed to p.o.. However, 03/16 afternoon she developed recurrent PAF with RVR, and marked increase in oxygen needs and dyspnea. Her chest x-ray shows new onset of pulmonary edema. Her heart rate fast at 120 beats per minute despite Cardizem at 10 mg/hour she was transferred to the SDU and cardioverted on amiodarone. She has remained in sinus rhythm Congestive heart failure: Suggested by the elevated BNP and new onset of interstitial edema in the setting of atrial fibrillation with rapid ventricular response. Chest x-ray similar to yesterday, but BNP is down. Plan: Continue amiodarone Continue Cardizem p.o. Change Lasix to p.o. Continue ceftriaxone Cardiology will continue to follow the patient Transfer back to PCU Check chest x-ray tomorrow 03/18/19 11:53 Subjective: Feels better, with decreased cough and shortness of Breath. Objective: Vital Signs Temp Pulse Resp BP Pulse Ox 37.0 C 71 17 136/62 H 97 03/18/19 07:23 03/18/19 07:23 03/18/19 07:23 03/18/19 07:23 03/18/19 07:23 Laboratory Results 03/17/19 05:39 03/17/19 18:10 03/17/19 03/18/19 03/19/19 05:59 05:59 05:59 Intake Total 1752 1505 Output Total 3100 1100 Balance -1348 405 Physical Exam - Physical Exam General Appearance: alert, no apparent distress EENT: normal ENT inspection Neck: normal inspection Respiratory: lungs clear, normal breath sounds Cardiac/Chest: normal peripheral pulses, regular rate, rhythm, No edema Abdomen: normal bowel sounds, non-tender Skin: normal color, warm/dry Extremities: normal inspection Neuro/Psych: alert, normal mood/affect, oriented x 3 ICD10 Worksheet Patient Problems: Problems Problem Status Onset Chronic Disease Mgmt/Transitional Care Acute Chronic obstructive pulmonary disease with acute exacerbation Acute Pneumonia Acute Acute exacerbation of chronic bronchitis Acute Bronchitis Acute Dehydration Acute Hyperglycemia Acute Hypoxia Acute Respiratory distress Acute Thrush, oral Acute
[2019-03-18] MEDS: BUDESONIDE/FORMOTEROL 160/4.5 60 PUFFS/MDI IH SCH ×2 (12:01→22:06)
[2019-03-18] MEDS: GUAIFENESIN/DM 10 ML UDCUP PO PRN ×2 (12:57→23:44)
--- NOTE | 2019-03-18 16:01 | CPEKG ---
Test Reason : OPEN Blood Pressure : / mmHG Vent. Rate : 075 BPM Atrial Rate : 075 BPM P-R Int : 066 ms QRS Dur : 083 ms QT Int : 404 ms P-R-T Axes : 063 065 045 degrees QTc Int : 452 ms Sinus rhythm Short IA interval Confirmed by Gary Kowalski ([id number] on 03/18/2019 4:00:56 PM Referred By: Carlos Manuel Quintanilla Confirmed By:Gary Kowalski
[2019-03-18] MEDS: BENZONATATE 100 MG CAP PO PRN (22:05)
[2019-03-18] MEDS: APIXABAN 2.5 MG TAB PO SCH (22:05)
[2019-03-18] MEDS: INSULIN GLARGINE 100 UNITS/ML UNIT SC SCH (22:16)
[2019-03-18] MEDS: CEPACOL LOZENGE PO PRN (23:44)
[2019-03-19] MEDS: AMIODARONE HCL 200 ML IV SCH (04:23)
[2019-03-19 04:24] LABS: PLATELET COUNT 340 10^3/uL (150-400)
[2019-03-19] MEDS: ALBUTEROL 3 ML DEYVIAL IH SCH ×4 (06:12→20:44)
[2019-03-19] MEDS: ACETYLCYSTEINE 10% IH/PO 4 ML VIAL IH SCH ×4 (06:13→20:44)
[2019-03-19] MEDS: SENNOSIDES/DOCUSATE SODIUM TAB PO SCH ×2 (07:06→23:28)
[2019-03-19] MEDS: APIXABAN 2.5 MG TAB PO SCH ×2 (08:11→22:50)
[2019-03-19] MEDS: POTASSIUM CL 20 MEQ TAB PO SCH ×2 (08:12→22:50)
[2019-03-19] MEDS: DILTIAZEM CD 120 MG CAP PO SCH (08:12)
[2019-03-19] MEDS: FUROSEMIDE 20 MG TAB PO SCH (08:12)
[2019-03-19] MEDS: ASPIRIN 81 MG CHEWABLE TAB PO SCH (08:12)
[2019-03-19] MEDS: INSULIN LISPRO 100 UNIT/ML SC SCH ×3 (08:12→18:38)
[2019-03-19] MEDS: guaiFENesin 600 MG TAB.ER PO SCH ×2 (08:12→22:50)
[2019-03-19] MEDS: BENZONATATE 100 MG CAP PO PRN ×2 (08:17→22:53)
[2019-03-19] MEDS: BUDESONIDE/FORMOTEROL 160/4.5 60 PUFFS/MDI IH SCH ×2 (10:19→20:46)
--- NOTE | 2019-03-19 11:14 | PDCARPN ---
Cardiology Progress Note Assessment/Plan: Assessment: The patient is a 78 y/o F admitted with bilateral pneumonia, PAF, and DCHF. Initially she went into a.fib with rates of 120 and converted to NSR with Dilt. It returned at a rate of 160BPM which did not respond to Dilt and therefore she was started in IV amiodarone and converted to NSR. She is minimally symptomatic when in a.fib complaining of mild palpitations only. A echo showed preserved LV function without significant valvular abnormalities. She has diuresed and is back to baseline. Plan: 1. PAF- Currently in NSR. Finish Amio IV and then d/c. She will continue Eliquis at 2.5mg BID (reduced dose for age and weight) for 30 days. She has a CHADS VASc of 5. 2. DCHF- back to baseline. 3. Acute respiratory failure- on 5L of O2 and SAT 90%. CXR is pending. 4. Pneumonia- per hospitalists. 5. Hyponatremia- Currently 127. Possibly exacerbated by Lasix but unlikely given it was present prior to admission on 03/1203/19/19 13:48 Subjective: She denies any CP but is complaining of mildly productive cough and SOB. Reviewed/Discussed With: hospitalist Objective: Vital Signs (8 Hrs) Temp Pulse Resp BP Pulse Ox 03/19/19 10:26 74 16 91 L 03/19/19 08:12 88 143/78 H 03/19/19 08:00 82 18 147/64 H 95 03/19/19 06:15 88 20 95 03/19/19 04:00 37.3 C 85 20 143/78 H 90 L Intake/Output (24 Hrs) 03/18/19 03/19/19 03/20/19 05:59 05:59 05:59 Intake Total 1505 954 Output Total 1100 Balance 405 954 Intake: Oral (ml) 1100 750 IV Infused (ml) 405 204 Amiodarone HCl 200 ml @ 209 33.333 mls/hr IV ONCE ONE Rx#:[id number] Amiodarone HCl 200 ml @ 196 204 As Directed IV AD STEPHEN Rx# :[id number] Output: Urine (ml) 1100 Catheter 1100 Other: Weight 48.591 kg 52.526 kg Number of Voids Incontinence 1 Toilet 1 Number of Stools Catheter 1 1 Toilet 1 Result Diagrams: 03/19/19 04:05 03/19/19 04:05 Cardiac Labs: Cardiac Lab Results (72 Hrs) 03/17/19 03/16/19 05:39 20:00 Troponin I < 0.012 < 0.012 Telemetry: NSR - Physical Exam Constitutional: no apparent distress Cardiovascular: regular rate and rhythm, no murmurs, no rubs, no gallops Respiratory: expiratory wheeze, other (difficult to assess secondary to cough with every breath.) Skin: no edema ICD10 Worksheet Patient Problems: Problems Problem Status Onset Chronic Disease Mgmt/Transitional Care Acute Chronic obstructive pulmonary disease with acute exacerbation Acute Pneumonia Acute Acute exacerbation of chronic bronchitis Acute Bronchitis Acute Dehydration Acute Hyperglycemia Acute Hypoxia Acute Respiratory distress Acute Thrush, oral Acute
[2019-03-19] MEDS ORDERED: VANCOMYCIN HCL/NORMAL SALINE 250 ML IV SCH (13:30)
--- NOTE | 2019-03-19 13:30 | HOSPPROG ---
Hospitalist Progress Note Assessment/Plan: 78 y/o w/hx of COPD and DM1 presents w/1 week of persistent cough. AHRF 2/2 bacterial PNA compounded with CHF exacerbation and COPD- Exam sounds better today completed course abx. still w 02 requirement Rapid A fib - happened earlier in admission, resolved and she was placed on po dilt, then again yesterday went back in to Afib with RVR and rates in the 160s. back in sinus complete amio continue dilt 1 months anticoag phlebitis: warm and tender although not that rd pain persists for 3 days reasonable to treat w abx Hyponatremia -sodium down to 127 but back up to 129 last night. unable to redraw today due to poor IV access. uosm high, likley SIADH, although that number confounded by [id number] therapy has had normal sodiums in past fluid restrict follow daily DM1 -A1c 7.7%, elevated sugar 2/2 solumedrol cont basal/bolus insulin COPD - Quit smoking in 2016 after a 40 pack-year hx Cont home inhalers including symbicort nebs Low TSH - nl T3,T4 Code: Full VTE ppx: Lovenox subq Dispo: cont inpt, dispo pending. Transfer to PCU today after PICC Subjective: case d/w Vivi Paulson, cardiology PA. painful red area at R elbow Objective: Vital Signs Temp Pulse Resp BP Pulse Ox 36.8 C 82 18 136/62 H 90 L 03/19/19 12:00 03/19/19 12:00 03/19/19 12:00 03/19/19 12:00 03/19/19 12:00 Laboratory Results 03/19/19 04:05 03/19/19 04:05 03/18/19 03/19/19 03/20/19 05:59 05:59 05:59 Intake Total 1505 954 Output Total 1100 Balance 405 954 - Physical Exam Constitutional: no apparent distress, appears nourished Eyes: PERRL, anicteric sclera Ears, Nose, Mouth, Throat: moist mucous membranes, hearing normal Cardiovascular: regular rate and rhythym, no murmur, rub, or gallop Respiratory: other (rhonchi, cough. no wheeze, good air movement) Gastrointestinal: normoactive bowel sounds, soft, non-tender abdomen Genitourinary: no bladder fullness, No saha in urethra Skin: warm, normal color Musculoskeletal: other (painful indurated area medial R elbow distal to picc. picc site c/d/i, no induration) Neurologic: AAOx3 Psychiatric: interacting appropriately ICD10 Worksheet Patient Problems: Problems Problem Status Onset Chronic Disease Mgmt/Transitional Care Acute Chronic obstructive pulmonary disease with acute exacerbation Acute Pneumonia Acute Acute exacerbation of chronic bronchitis Acute Bronchitis Acute Dehydration Acute Hyperglycemia Acute Hypoxia Acute Respiratory distress Acute Thrush, oral Acute
[2019-03-19] MEDS ORDERED: PATCH REMOVAL 1 EA PATCH TD PRN (14:19)
[2019-03-19] MEDS: VANCOMYCIN 750 MG in D5W 150 ML IV SCH (14:51)
[2019-03-19] MEDS: LIDOCAINE 4%/MENTHOL 1% PATCH TD PRN (14:56)
--- NOTE | 2019-03-19 15:11 | ASMTCMCOM ---
CM Note CM Note Notes: Pts case discussed in tx rounds. CM met w/ pt and introduced self. Pt reports that she is able to get around independently without a walker or a cane. Pt reports that she is able to get herself groceries and to her appointments. Pt reports that she lives alone but has friends/family that live nearby that can assist if she needs anything. Anticipate d/c home independent. CM available for changes. Plan: Independent Date Signed: 03/19/2019 03:10 PM Electronically Signed By:SERGIO Garcia
[2019-03-19] MEDS: ACETAMINOPHEN 325 MG TAB PO PRN ×2 (16:11→23:08)
[2019-03-19] MEDS: GUAIFENESIN/DM 10 ML UDCUP PO PRN ×2 (18:23→23:12)
[2019-03-19] MEDS: INSULIN GLARGINE 100 UNITS/ML UNIT SC SCH (22:49)
[2019-03-20 04:41] LABS: PLATELET COUNT 367 10^3/uL (150-400)
[2019-03-20] MEDS: ACETYLCYSTEINE 10% IH/PO 4 ML VIAL IH SCH ×4 (06:19→23:02)
[2019-03-20] MEDS: ALBUTEROL 3 ML DEYVIAL IH SCH ×4 (06:20→23:01)
[2019-03-20] MEDS: INSULIN LISPRO 100 UNIT/ML SC SCH ×3 (07:58→18:11)
[2019-03-20] MEDS: FUROSEMIDE 20 MG TAB PO SCH (08:00)
[2019-03-20] MEDS: POTASSIUM CL 20 MEQ TAB PO SCH ×2 (08:00→20:48)
[2019-03-20] MEDS: APIXABAN 2.5 MG TAB PO SCH ×2 (08:00→20:48)
[2019-03-20] MEDS: guaiFENesin 600 MG TAB.ER PO SCH ×2 (08:01→20:47)
[2019-03-20] MEDS: ASPIRIN 81 MG CHEWABLE TAB PO SCH (08:01)
[2019-03-20] MEDS: DILTIAZEM CD 120 MG CAP PO SCH (08:01)
[2019-03-20] MEDS: SENNOSIDES/DOCUSATE SODIUM TAB PO SCH ×2 (08:01→20:47)
[2019-03-20] MEDS: BENZONATATE 100 MG CAP PO PRN ×2 (08:05→20:50)
[2019-03-20] MEDS: LIDOCAINE 4%/MENTHOL 1% PATCH TD PRN (08:18)
[2019-03-20] MEDS: BUDESONIDE/FORMOTEROL 160/4.5 60 PUFFS/MDI IH SCH ×2 (10:05→23:02)
--- NOTE | 2019-03-20 11:09 | PDCARPN ---
Cardiology Progress Note Chief Complaint: SOB Assessment/Plan: Assessment: The patient is a 78 y/o F admitted with bilateral pneumonia, PAF, and DCHF. Initially she went into a.fib with rates of 120 and converted to NSR with Dilt. It returned at a rate of 160BPM which did not respond to Dilt and therefore she was started in IV amiodarone and converted to NSR. She is minimally symptomatic when in a.fib complaining of mild palpitations only. A echo showed preserved LV function without significant valvular abnormalities. She has diuresed and is back to baseline. CAMACHO and cough are improving but still present. Plan: 1. PAF- Currently in NSR. Finish Amio IV and then d/c. She will continue Eliquis at 2.5mg BID (reduced dose for age and weight) for 30 days. She has a CHADS VASc of 5. Continue Dilt. 2. DCHF- back to baseline. 3. Acute respiratory failure- O2 requirement have improved. 4. Pneumonia- per hospitalists. 5. Hyponatremia- Currently 127. Possibly exacerbated by Lasix but unlikely given it was present prior to admission on 03/12 6. Anemia- unclear etiology. Stable from a cardiac standpoint. Will sign off. 03/20/19 10:54 Subjective: SOB and cough have improved. She denies any CP. Right forearm is swollen and painful. Stable from yesterday. Objective: Vital Signs (8 Hrs) Temp Pulse Resp BP Pulse Ox 03/20/19 10:12 91 15 94 03/20/19 07:18 36.9 C 78 18 149/70 H 91 L 03/20/19 04:00 36.9 C 75 16 144/61 H 91 L Intake/Output (24 Hrs) 03/19/19 03/20/19 03/21/19 05:59 05:59 05:59 Intake Total 954 900 Output Total 900 Balance 954 0 Intake: Oral (ml) 750 750 IV Infused (ml) 204 150 Amiodarone HCl 200 ml @ 204 As Directed IV AD STEPHEN Rx# :[id number] Vancomycin 750 mg In D5w 150 150 ml @ 150 mls/hr IV Q24H STEPHEN Rx#:[id number] Output: Urine (ml) 900 Catheter 900 Other: Weight 52.526 kg 54.6 kg Number of Voids Incontinence 1 Toilet 1 1 Number of Stools Catheter 1 Toilet 1 Result Diagrams: 03/20/19 04:30 03/20/19 04:30 Telemetry: NSR - Physical Exam Constitutional: no apparent distress Cardiovascular: regular rate and rhythm, no murmurs, no rubs, no gallops Peripheral Pulses: 2+: dorsalis-pedis (R), dorsalis-pedis (L) Respiratory: reduced air movement, other (rhonchi present) Skin: no edema Neurologic: AAOx3 ICD10 Worksheet Patient Problems: Problems Problem Status Onset Chronic Disease Mgmt/Transitional Care Acute Chronic obstructive pulmonary disease with acute exacerbation Acute Pneumonia Acute Acute exacerbation of chronic bronchitis Acute Bronchitis Acute Dehydration Acute Hyperglycemia Acute Hypoxia Acute Respiratory distress Acute Thrush, oral Acute
[2019-03-20] MEDS: NYSTATIN SUSP 500000 UNIT/5 ML UD LIQ PO SCH ×3 (14:00→20:48)
[2019-03-20] MEDS: VANCOMYCIN 750 MG in D5W 150 ML IV SCH (14:00)
[2019-03-20] MEDS ORDERED: FLUCONAZOLE 150 MG TAB PO ONE (16:00)
--- NOTE | 2019-03-20 16:04 | HOSPPROG ---
Hospitalist Progress Note Assessment/Plan: 78 y/o w/hx of COPD and DM1 presents w/1 week of persistent cough. AHRF 2/2 bacterial PNA compounded with CHF exacerbation and COPD- Exam sounds better today completed course abx. still w 02 requirement thrush: nystatin fluconazole X 1 magic mouthwash Rapid A fib - happened earlier in admission, resolved and she was placed on po dilt, then again yesterday went back in to Afib with RVR and rates in the 160s. back in sinus complete amio continue dilt 1 months anticoag phlebitis: warm and tender although not that rd pain persists for 3 days reasonable to treat w abx 03/20- improved today continue abx suspect this is reaction to amiodarone Hyponatremia -sodium down to 127 but back up to 129 last night. unable to redraw today due to poor IV access. uosm high, likley SIADH, although that number confounded by [id number] therapy has had normal sodiums in past fluid restrict follow daily 128 today DM1 -A1c 7.7%, elevated sugar 2/2 solumedrol cont basal/bolus insulin COPD - Quit smoking in 2017 after a 40 pack-year hx Cont home inhalers including symbicort nebs Low TSH - nl T3,T4 Code: Full VTE ppx: anticoagulated Dispo: cont inpt, dispo pending. Transfer to PCU today after PICC Subjective: case d/w Vivi Paulson, cardiology PA. has thrush Objective: Vital Signs Temp Pulse Resp BP Pulse Ox 36.9 C 88 18 143/64 H 90 L 03/20/19 12:00 03/20/19 12:00 03/20/19 12:00 03/20/19 12:00 03/20/19 12:00 Laboratory Results 03/20/19 04:30 03/20/19 04:30 03/19/19 03/20/19 03/21/19 05:59 05:59 05:59 Intake Total 954 900 Output Total 900 Balance 954 0 - Physical Exam Constitutional: no apparent distress, appears nourished Eyes: PERRL, anicteric sclera Ears, Nose, Mouth, Throat: oral thrush, other Cardiovascular: regular rate and rhythym, no murmur, rub, or gallop Respiratory: rhonchi, No no rales or rhonchi Gastrointestinal: normoactive bowel sounds, soft, non-tender abdomen Genitourinary: no bladder fullness, No saha in urethra Skin: warm, normal color Musculoskeletal: full muscle strength, no muscle tenderness Neurologic: AAOx3 ICD10 Worksheet Patient Problems: Problems Problem Status Onset Chronic Disease Mgmt/Transitional Care Acute Chronic obstructive pulmonary disease with acute exacerbation Acute Pneumonia Acute Acute exacerbation of chronic bronchitis Acute Bronchitis Acute Dehydration Acute Hyperglycemia Acute Hypoxia Acute Respiratory distress Acute Thrush, oral Acute
[2019-03-20] MEDS: MBX SOLN 30 ML BOTTLE PO PRN (17:01)
[2019-03-20] MEDS ORDERED: INSULIN GLARGINE 100 UNITS/ML UNIT SC SCH (18:00)
[2019-03-20] MEDS: INSULIN GLARGINE 100 UNITS/ML UNIT SC SCH (18:11)
[2019-03-21] MEDS: MBX SOLN 30 ML BOTTLE PO PRN (00:30)
[2019-03-21] MEDS: GUAIFENESIN/DM 10 ML UDCUP PO PRN (00:35)
[2019-03-21] MEDS: ACETYLCYSTEINE 10% IH/PO 4 ML VIAL IH SCH ×3 (05:42→16:45)
[2019-03-21] MEDS: ALBUTEROL 3 ML DEYVIAL IH SCH ×4 (05:42→21:20)
[2019-03-21] MEDS: NYSTATIN SUSP 500000 UNIT/5 ML UD LIQ PO SCH ×4 (06:22→21:08)
[2019-03-21] MEDS: INSULIN LISPRO 100 UNIT/ML SC SCH ×3 (09:02→16:05)
[2019-03-21] MEDS: FUROSEMIDE 20 MG TAB PO SCH (09:05)
[2019-03-21] MEDS: BENZONATATE 100 MG CAP PO PRN ×2 (09:05→21:06)
[2019-03-21] MEDS: POTASSIUM CL 20 MEQ TAB PO SCH ×2 (09:05→21:07)
[2019-03-21] MEDS: LIDOCAINE 4%/MENTHOL 1% PATCH TD PRN (09:05)
[2019-03-21] MEDS: guaiFENesin 600 MG TAB.ER PO SCH ×2 (09:05→21:07)
[2019-03-21] MEDS: ASPIRIN 81 MG CHEWABLE TAB PO SCH (09:06)
[2019-03-21] MEDS: DILTIAZEM CD 120 MG CAP PO SCH (09:06)
[2019-03-21] MEDS: APIXABAN 2.5 MG TAB PO SCH ×2 (09:06→21:08)
[2019-03-21] MEDS: SENNOSIDES/DOCUSATE SODIUM TAB PO SCH ×2 (09:06→21:55)
[2019-03-21] MEDS: BUDESONIDE/FORMOTEROL 160/4.5 60 PUFFS/MDI IH SCH ×2 (09:15→21:19)
--- NOTE | 2019-03-21 12:20 | ASMTCMCOM ---
CM Note CM Note Notes: 03/21/2019 Case Management Note Discussed pt in rounds. Therapy evals indicate pt is safe to d/c home. There are no identified case management d/c needs. Case Management d/c poc: anticipating home independent with supportive family. Case Management to follow. Date Signed: 03/21/2019 12:19 PM Electronically Signed By:Arelis Christina RN
[2019-03-21] MEDS: VANCOMYCIN 750 MG in D5W 150 ML IV SCH (13:47)
[2019-03-21] MEDS: CEPACOL LOZENGE PO PRN ×2 (13:47→21:15)
--- NOTE | 2019-03-21 15:47 | HOSPPROG ---
Hospitalist Progress Note Assessment/Plan: 78 y/o w/hx of COPD and DM1 presents w/1 week of persistent cough. AHRF 2/2 bacterial PNA compounded with CHF exacerbation and COPD- Exam sounds better today completed course abx. still w 02 requirement improving suspect she may need home 02 thrush: nystatin fluconazole X 1 magic mouthwash improved continue nystatin Rapid A fib - happened earlier in admission, resolved and she was placed on po dilt, then again yesterday went back in to Afib with RVR and rates in the 160s. back in sinus complete amio continue dilt 1 months anticoag phlebitis: warm and tender although not that rd pain persists for 3 days reasonable to treat w abx 03/20- improved today continue abx suspect this is reaction to amiodarone 03/21- change to doxy Hyponatremia -sodium down to 127 but back up to 129 last night. unable to redraw today due to poor IV access. uosm high, likley SIADH, although that number confounded by [id number] therapy has had normal sodiums in past fluid restrict follow daily 128 today 03/21: Na worse fluid restrict, boost and salt tabs plus dc diuretics DM1 -A1c 7.7%, cont basal/bolus insulin COPD - Quit smoking in 2017 after a 40 pack-year hx Cont home inhalers including symbicort nebs Low TSH - nl T3,T4 Code: Full VTE ppx: anticoagulated Dispo: cont inpt, dispo pending. Transfer to PCU today after PICC Subjective: cough improved, mouth better, mouth worse. tele: no events (interp by me) Objective: Vital Signs Temp Pulse Resp BP Pulse Ox 37.3 C 72 14 126/68 H 97 03/21/19 15:09 03/21/19 15:09 03/21/19 15:09 03/21/19 15:09 03/21/19 15:09 Laboratory Results 03/20/19 04:30 03/21/19 06:20 03/20/19 03/21/19 03/22/19 05:59 05:59 05:59 Intake Total 900 350 240 Output Total 900 1350 1900 Balance 0 -1000 -1660 - Physical Exam Constitutional: no apparent distress, appears nourished Eyes: PERRL, anicteric sclera Ears, Nose, Mouth, Throat: other (thrush better) Cardiovascular: regular rate and rhythym, no murmur, rub, or gallop Respiratory: other (prolonged expiratory phase but o/w imprved) Gastrointestinal: normoactive bowel sounds Genitourinary: no bladder fullness, No saha in urethra Skin: warm, normal color Musculoskeletal: full muscle strength ICD10 Worksheet Patient Problems: Problems Problem Status Onset Chronic Disease Mgmt/Transitional Care Acute Chronic obstructive pulmonary disease with acute exacerbation Acute Pneumonia Acute Acute exacerbation of chronic bronchitis Acute Bronchitis Acute Dehydration Acute Hyperglycemia Acute Hypoxia Acute Respiratory distress Acute Thrush, oral Acute
[2019-03-21] MEDS: SODIUM CHLORIDE 1,000 MG TAB PO SCH (16:05)
[2019-03-21] MEDS: INSULIN GLARGINE 100 UNITS/ML UNIT SC SCH (17:23)
[2019-03-22] MEDS: NYSTATIN SUSP 500000 UNIT/5 ML UD LIQ PO SCH (05:45)
[2019-03-22] MEDS: GUAIFENESIN/DM 10 ML UDCUP PO PRN (05:45)
[2019-03-22] MEDS: BENZONATATE 100 MG CAP PO PRN (05:45)
[2019-03-22] MEDS: guaiFENesin 600 MG TAB.ER PO SCH (05:49)
[2019-03-22] MEDS: ALBUTEROL 3 ML DEYVIAL IH SCH ×2 (05:56→10:12)
[2019-03-22] MEDS: SODIUM CHLORIDE 1,000 MG TAB PO SCH (07:22)
[2019-03-22] MEDS: DILTIAZEM CD 120 MG CAP PO SCH (07:22)
[2019-03-22] MEDS: APIXABAN 2.5 MG TAB PO SCH (07:22)
[2019-03-22] MEDS: ASPIRIN 81 MG CHEWABLE TAB PO SCH (07:22)
[2019-03-22] MEDS: SENNOSIDES/DOCUSATE SODIUM TAB PO SCH (07:23)
[2019-03-22] MEDS: INSULIN LISPRO 100 UNIT/ML SC SCH (07:24)
[2019-03-22] MEDS: POTASSIUM CL 20 MEQ TAB PO SCH (07:24)
--- NOTE | 2019-03-22 09:22 | PDHOMEO2F ---
Home Oxygen Face to Face Home Orders: I certify that a physician or a nurse practitioner or physician's speech language pathologist assistant has had a [id number] encounter with this patient on the date of this order due to the diagnosis listed, which relates to the primary reason the patient requires home oxygen. Alternative treatments have been tried, or considered, and deemed ineffective. It is anticipated that supplemental oxygen will result in improvement with treatment. Home oxygen qualifying diagnosis: copd SpO2 on room air (%): 84 Frequency of home oxygen needed: continuous Home oxygen liters per minute: 3 Home oxygen delivery device: nasal cannula Concentrator: Yes E-tanks for mobility and back up: Yes If ordering portable O2, is the patient mobile in the home?: Yes I certify that, based on these findings, the home oxygen is medically necessary for this patient for the following length of time. Length of time home oxygen needed: 1 month
--- NOTE | 2019-03-22 09:31 | HOSPPROG ---
Hospitalist Progress Note Assessment/Plan: 78 y/o w/hx of COPD and DM1 presents w/1 week of persistent cough. AHRF 2/2 bacterial PNA compounded with CHF exacerbation and COPD- Exam sounds better today completed course abx. still w 02 requirement improving suspect she may need home 02 thrush: nystatin fluconazole X 1 magic mouthwash improved continue nystatin Rapid A fib - happened earlier in admission, resolved and she was placed on po dilt, then again yesterday went back in to Afib with RVR and rates in the 160s. back in sinus complete amio continue dilt 1 months anticoag outpt cardiology follow up phlebitis: warm and tender although not that rd pain persists for 3 days reasonable to treat w abx 03/20- improved today continue abx suspect this is reaction to amiodarone 03/21- change to doxy 4 add'l days abx Hyponatremia -sodium down to 127 but back up to 129 last night. unable to redraw today due to poor IV access. uosm high, likley SIADH, although that number confounded by [id number] therapy has had normal sodiums in past fluid restrict follow daily 128 today 03/21: Na worse fluid restrict, boost and salt tabs plus dc diuretics DM1 -A1c 7.7%, cont basal/bolus insulin COPD - Quit smoking in 2017 after a 40 pack-year hx Cont home inhalers including symbicort nebs Low TSH - nl T3,T4 Code: Full VTE ppx: anticoagulated Dispo: home today > 30 minutes on dc Subjective: feels well. ready for dc Objective: Vital Signs Temp Pulse Resp BP Pulse Ox 37.1 C 82 15 140/70 H 91 L 03/22/19 07:25 03/22/19 07:25 03/22/19 07:25 03/22/19 07:25 03/22/19 07:25 Laboratory Results 03/20/19 04:30 03/22/19 05:45 03/21/19 03/22/19 03/23/19 05:59 05:59 05:59 Intake Total 350 880 Output Total 1350 4000 Balance -1000 -3120 - Physical Exam Constitutional: no apparent distress, appears nourished Eyes: PERRL, anicteric sclera Ears, Nose, Mouth, Throat: moist mucous membranes, hearing normal Cardiovascular: regular rate and rhythym, no murmur, rub, or gallop Respiratory: no respiratory distress Gastrointestinal: normoactive bowel sounds, soft, non-tender abdomen Genitourinary: no bladder fullness, No saha in urethra Skin: warm, normal color Musculoskeletal: full muscle strength Neurologic: AAOx3 ICD10 Worksheet Patient Problems: Problems Problem Status Onset Chronic Disease Mgmt/Transitional Care Acute Chronic obstructive pulmonary disease with acute exacerbation Acute Pneumonia Acute Acute exacerbation of chronic bronchitis Acute Bronchitis Acute Dehydration Acute Hyperglycemia Acute Hypoxia Acute Respiratory distress Acute Thrush, oral Acute
[2019-03-22 09:43] VITALS: BP 137/68
--- NOTE | 2019-03-22 10:07 | ASMTLACE ---
LACE Length of stay for Answers: 7-13 days current admission Acuity / Level of Answers: Yes Care: Did the patient have an inpatient admission? Comorbidities - select Answers: Chronic pulmonary disease all that apply Diabetes (uncontrolled or controlled) # of Emergency department Answers: 1-2 visits in the last 6 months Score: 12 Date Signed: 03/22/2019 10:06 AM Electronically Signed By:Arelis Christina RN
[2019-03-22] MEDS: BUDESONIDE/FORMOTEROL 160/4.5 60 PUFFS/MDI IH SCH (10:12)
--- NOTE | 2019-03-22 10:20 | ASDISCHSUM ---
Discharge Information Plan Status:Home with No Needs Medically Cleared to Leave:03/22/2019 Discharge Date:03/22/2019 CM D/C Disposition:Home, Routine, Self-Care ADT D/C Disposition: Projected Discharge Date:03/22/2019 Transportation at D/C: Discharge Delay Reason: Follow-Up Date:03/22/2019 Discharge Slot: Final Diagnosis: Placement Information Patient Contact Information Contact Name:RADHA Relationship:Daughter Address:[address] City:[place] Alternate Phone: State/Zip Code:[place] [address] Email: Financial Information Financial Class:Medicare Primary Plan Desc:MEDICARE INPATIENT Primary Plan Number:[id number] Secondary Plan Desc:[facility] Secondary Plan Number:[id number] Assessment Information LACE LACE Length of stay for Answers: 7-13 days current admission Acuity / Level of Answers: Yes Care: Did the patient have an inpatient admission? Comorbidities - select Answers: Chronic pulmonary disease all that apply Diabetes (uncontrolled or controlled) # of Emergency department Answers: 1-2 visits in the last 6 months Score: 12 Date Signed: 03/22/2019 10:06 AM Electronically Signed By:Arelis Christina RN [facility] Progress Note CM Note CM Note Notes: CM spoke with pt in the room and with pt's RN. Pt lives alone and independently and has a son and daughter locally who look in on her, as well as 7 great grandchildren. Pt admitted for PNA and is independent in the room with no therapies ordered. Anticpated that pt will dc independently. CM to follow. D/C Plan: Independent Date Signed: 03/13/2019 04:07 PM Electronically Signed By:Bria Rowley [facility] CM Progress Note CM Note CM Note Notes: Patient making progress but still requiring diuresis. She is re-starting her home ASA, refuses Eliquis. She continues to be independent in her ADLs while here. Current CM Discharge plan: home independent Date Signed: 03/16/2019 11:50 AM Electronically Signed By:Sneha Mckeon RN [facility] CM Progress Note CM Note CM Note Notes: Pts case discussed in tx rounds. CM met w/ pt and introduced self. Pt reports that she is able to get around independently without a walker or a cane. Pt reports that she is able to get herself groceries and to her appointments. Pt reports that she lives alone but has friends/family that live nearby that can assist if she needs anything. Anticipate d/c home independent. CM available for changes. Plan: Independent Date Signed: 03/19/2019 03:10 PM Electronically Signed By:SERGIO Garcia [facility] CM Progress Note CM Note CM Note Notes: 03/21/2019 Case Management Note Discussed pt in rounds. Therapy evals indicate pt is safe to d/c home. There are no identified case management d/c needs. Case Management d/c poc: anticipating home independent with supportive family. Case Management to follow. Date Signed: 03/21/2019 12:19 PM Electronically Signed By:Arelis Christina RN Case Management Discharge Plan Note Case Management Discharge Discharge Order Complete? Answers: Yes Patient to Obtain Answers: via Family Medications Transportation Arranged Answers: Family/Friends Discharge Comments Notes: 03/22/2019 Case Management Note Pt to discharge independent with follow up as directed. Date Signed: 03/22/2019 10:19 AM Electronically Signed By:Arelis Christina RN Intervention Information Intervention Type:*Incorrect Registration Date of Service:03/12/2019 12:01 PM Patient Type:Observation Staff Member:JESSA Lua, Oly Hours: Discipline: Severity: Comment: Intervention Type:*BOONE-Signed Date of Service:03/13/2019 02:30 PM Patient Type:Observation Staff Member:Laura Lopez Hours: Discipline: Severity: Comment: Intervention Type:*IM-Signed Date of Service:03/22/2019 10:04 AM Patient Type:Inpatient Staff Member:Laura Lopez Hours: Discipline: Severity: Comment:
--- NOTE | 2019-03-22 11:51 | GDS ---
[f rep st] DISCHARGE SUMMARY DISCHARGE DIAGNOSES: 1. Chronic obstructive pulmonary disease. 2. Acute hypoxemic respiratory failure. 3. Type 1 diabetes. 4. Community-acquired pneumonia. 5. Hyponatremia. 6. Atrial fibrillation, now back in sinus. 7. Chronic obstructive pulmonary disease exacerbation. 8. Phlebitis. Please see the admission history and physical by Dr. Carlos Manuel Quintanilla. The patient presented with body aches and increased work of breathing. Chest x-ray showed bilateral lower lobe airspace disease consistent with pneumonia, right greater than left. She received antibio tics with improvement. She received a complete course while here. Her hospital course was complicat ed by a couple episodes of paroxysmal atrial fibrillation with a rapid ventricular response, the seco nd one requiring transfer to the intensive care unit. It was refractory to diltiazem, and amiodarone was added. She is on p.o. diltiazem and Eliquis. Cardiology has followed her. She is currently in sinus rhythm and is discharged on a month of Eliquis and diltiazem, with outpatient Cardiology simeon eddy. She did have an infiltration in her right antecubital fossa with a significant amount of p ain. This is improved. Given the concern for potential antibiotics and her diabetes status, she was given a course of antibiotics. She is discharged home on oxygen for the first time, as well as diltiazem, Eliquis, and doxycycline, but otherwise an unchanged medication regimen. She has outpatient followup with her primary pulmonol ogist, Dr. Vasquez, as well as Cardiology. /[id number]/MODL
--- NOTE | 2019-03-22 13:29 | PDHOMEO2F ---
Home Oxygen Face to Face Home Orders: I certify that a physician or a nurse practitioner or physician's housekeeper and laundry assistant has had a [id number] encounter with this patient on the date of this order due to the diagnosis listed, which relates to the primary reason the patient requires home oxygen. Alternative treatments have been tried, or considered, and deemed ineffective. It is anticipated that supplemental oxygen will result in improvement with treatment. Home oxygen qualifying diagnosis: copd SpO2 on room air (%): 84 Frequency of home oxygen needed: continuous Home oxygen liters per minute: 3 Home oxygen delivery device: nasal cannula Concentrator: Yes E-tanks for mobility and back up: Yes If ordering portable O2, is the patient mobile in the home?: Yes I certify that, based on these findings, the home oxygen is medically necessary for this patient for the following length of time. Length of time home oxygen needed: 3 months Home Oxygen Comment: 4 months, actually
== END 2019-03-22 12:22 | disposition home or self-care (01) | DRG 193 ==
LOC: INTOOBSV 16:27 → F3E 18:17 → OBSVTOIN 03-13 21:14 → F2W 03-14 20:34 → F2N 03-16 18:45 → F2W 03-18 15:40
PROVIDERS: ADMIT Internal Medicine; ATTEND Internal Medicine
PROC: 02H633Z Insertion of Infusion Device into Right Atrium, Percutaneous Approach (ICD-10-PCS; principal; 2019-03-18)
DX: J18.8 Other pneumonia, unspecified organism (principal); J96.01 Acute respiratory failure with hypoxia; J44.0 Chronic obstructive pulmonary disease with (acute) lower respiratory infection; J44.1 Chronic obstructive pulmonary disease with (acute) exacerbation; E87.1 Hypo-osmolality and hyponatremia; E10.9 Type 1 diabetes mellitus without complications; I48.0 Paroxysmal atrial fibrillation; I80.9 Phlebitis and thrombophlebitis of unspecified site; Z87.891 Personal history of nicotine dependence
CPT/HCPCS: 84481-90; 96365; 97161-GP; 97165-GO; 97530-GO; C1751; G0378; J0282; J0456; J0696; J1650; J1815; J1940; J2930; J3370; J7613